=== PATIENT | female | born 1950 | race Two or more races ===

== ENCOUNTER 2019-09-26 08:39 | Inpatient (IN) | payer OTHER, BC ==
--- NOTE | 2019-09-26 08:55 | PDOC ---
History of Present Illness - General Chief Complaint: Weakness Stated Complaint: WEAKNESS Time Seen by Provider: 09/26/19 08:54 History Source: Patient Exam Limitations: No Limitations - History of Present Illness Initial Comments: 09/26/19 08:55 HPI: 68yo F PMH HLD presenting with subacute SOB and weakness for 4 days. Pt reports feeling short of breath for over a week, and has been "bed bound" since 09/23 due to fatigue. She reports having no appetite but drinking juice and water. Endorses chills, denies fever, nausea, vomiting, or body aches. Says she has been having difficulty thinking. History of anemia in her 20s treated with iron. Reports negative colonoscopy 7 years ago. Lung nodule in 2017. Denies any sy blood or dark stools to me, no abdominal pain, denies diarrhea, constipation. All: Dilaudid Past History - Past Medical History Allergies/Adverse Reactions: Allergies Allergy/AdvReac Type Severity Reaction Status Date / Time hydromorphone HCl Allergy ITCHINESS Verified 09/26/19 08:47 [From Dilaudid] Home Medications: Ambulatory Orders Atorvastatin Ca [Lipitor (Restricted To Cardiology)] 20 mg PO HS 03/17/13 Anemia: No Asthma: No Cancer: No Cardiac Disorders: No CVA: No COPD: No CHF: No DVT: No Dementia: No Diabetes: No GI Disorders: No Disorders: No HTN: No Hypercholesterolemia: Yes Liver Disease: No Seizures: No Thyroid Disease: No - Surgical History Abdominal Surgery: No Appendectomy: Yes Cardiac Surgery: No Cholecystectomy: No Lung Surgery: No Neurologic Surgery: No Orthopedic Surgery: No - Immunization History Immunization Up to Date: Yes - Psycho Social/Smoking Cessation Hx Smoking Status: No Smoking History: Never smoked Number of Cigarettes Smoked Daily: 0 Hx Alcohol Use: No Drug/Substance Use Hx: No Substance Use Type: None Hx Substance Use Treatment: No Review of Systems - Review of Systems Able to Perform ROS?: Yes Is the patient limited Persian proficient: Yes Constitutional: Yes: Chills, Malaise, Weakness. No: Fever HEENTM: No: Nose Congestion, Throat Pain Respiratory: Yes: Shortness of Breath. No: Cough, Wheezing, Hemoptysis Cardiac (ROS): No: Chest Pain, Edema, Irregular Heart Rate, Syncope, Chest Tightness ABD/GI: Yes: Poor Appetite. No: Constipated, Diarrhea, Nausea, Poor Fluid Intake, Vomiting : No: Burning, Dysuria Musculoskeletal: Yes: Muscle Weakness. No: Muscle Pain Integumentary: Yes: Pallor. No: Bruising, Rash Neurological: No: Headache, Numbness, Tingling, Weakness Psychiatric: Yes: Change in Appetite Hematologic/Lymphatic: Yes: Anemia (50 years ago). No: Blood Clots, Easy Bleeding All Other Systems: Reviewed and Negative *Physical Exam - Vital Signs Last Vital Signs Temp Pulse Resp BP Pulse Ox 98.1 F 102 H 18 129/50 L 100 09/26/19 08:47 09/26/19 08:47 09/26/19 08:47 09/26/19 08:47 09/26/19 08:47 - Physical Exam 09/26/19 10:18 Vitals reviewed, notable for mild tachycardia, afebrile GEN: Pale, tired, appears stated age, NAD. AAOx3. HEENT: NCAT, EOMI. Pale conjunctiva. No facial asymmetry. Moist mucous membranes. Normal voice. Trachea midline. CV: RRR, S1/S2, no murmurs / rubs / gallops appreciated. LUNG: CTAB, normal work of breathing. No wheezes, rales, rhonchi. No cough. Speaking full sentences. GI: Soft, NTND, no guarding, no rebound. No masses. Neg CVAT b/l. EXTREMITIES: 2+ distal pulses. No LE edema. No obvious deformities of all extremities. SKIN: Warm, dry, no rashes appreciated, non-jaundiced. PSYCH: Normal mood and affect. Cooperative and appropriate. NEURO: CN grossly intact. Moving all extremities well. Normal strength and sensation grossly. ED Treatment Course - LABORATORY CBC & Chemistry Diagram: 09/26/19 09:11 09/26/19 09:11 Medical Decision Making - Medical Decision Making 09/26/19 08:55 68yo F PMH HLD presenting with subacute SOB and acute weakness. Exam notable for pallor. Workup for anemia / weakness. Likely admission. - CBC, CMP, Cardiac Profile, T&S, Coags - EKG, CXR - Protonix - 1L IVF 09/26/19 10:36 - Hgb/Hct 4.8 / 14.1 - Total Bili 3.0 - 2U PRBCs ordered, patient consented - CXR without acute pathology - EKG Dispo: Med/Surg for new symptomatic anemia requiring transfusion Discharge - Discharge Information Problems reviewed: Yes Clinical Impression/Diagnosis: Anemia Qualifiers: Anemia type: unspecified type Qualified Code(s): D64.9 - Anemia, unspecified Condition: Guarded - Admission Yes - Follow up/Referral Referrals: Ewa Giang MD [Primary Care Provider] - - Patient Discharge Instructions - Post Discharge Activity
[2019-09-26] MEDS ORDERED: SODIUM CHLORIDE 0.9% 500 ML INFUS.BAG IV ONE (09:17)
[2019-09-26] MEDS ORDERED: PANTOPRAZOLE SODIUM 40 MG VIAL IVPUSH ONE (09:18)
[2019-09-26 09:26] LABS: BASO % 0.6 % (0-2.0); EOS % 0.4 % (0-4.5); HEMATOCRIT 14.1 % (32.4-45.2); LYMPH % 26.9 % (8-40); MCH 35.5 pg (25.7-33.7); MCHC 34.2 g/dl (32.0-36.0); MEAN CELL VOLUME 103.8 fl (80-96); MEAN PLT VOLUME 6.8 fl (7.5-11.1); MONO % 8.6 % (3.8-10.2); NEUT % 63.5 % (42.8-82.8); PLATELET COUNT 291 K/MM3 (134-434); RBC 1.36 M/mm3 (3.60-5.2); RDW 27.5 % (11.6-15.6); WHITE BLOOD COUNT 6.6 K/mm3 (4.0-10.0)
[2019-09-26 09:43] LABS: HEMOGLOBIN 4.8 GM/dL (10.7-15.3)
[2019-09-26 09:57] LABS: INR 1.53 (0.83-1.09); PROTHROMBIN TIME (PATIENT) 18.1 SEC (9.7-13.0)
[2019-09-26 10:00] LABS: ACTIVATED PTT 33.1 SECONDS (25.2-36.5); ALK PHOS 61 U/L (45-117); ANION GAP 9 MMOL/L (8-16); BLOOD UREA NITROGEN 18.7 mg/dL (7-18); CALCIUM 9.1 mg/dL (8.5-10.1); CHLORIDE 107 mmol/L (98-107); CO2 24 mmol/L (21-32); CREATININE 1.1 mg/dL (0.55-1.3); GLUCOSE,RANDOM 112 mg/dL (74-106); POTASSIUM 4.1 mmol/L (3.5-5.1); SGOT/AST 42 U/L (15-37); SGPT/ALT 24 U/L (13-61); SODIUM 140 mmol/L (136-145); TOT PROT 7.1 g/dl (6.4-8.2)
[2019-09-26] MEDS ORDERED: PANTOPRAZOLE SODIUM 40 MG/100 ML BAG IVPB ONE (10:03)
--- NOTE | 2019-09-26 10:11 | PDOC ---
Attending Attestation - Resident Resident Name: Yosef Fernandez - ED Attending Attestation I have performed the following: I have examined & evaluated the patient, The case was reviewed & discussed with the resident, I agree w/resident's findings & plan, Exceptions are as noted
[2019-09-26 10:36] LABS: ANISOCYTOSIS 1+; PLATELET ESTIMATE NORMAL
[2019-09-26 10:47] LABS: MACROCYTOSIS 1+; OVALOCYTE 1+; TARGET CELLS 1+; TEAR DROP CELLS 1+
--- NOTE | 2019-09-26 10:57 | PDOC ---
Documentation entered by Ashley Haider SCRIBE, acting as scribe for Jake Rebolledo MD. Jake Rebolledo MD: This documentation has been prepared by the Vitaly ortiz Adrianna, SCRIBE, under my direction and personally reviewed by me in its entirety. I confirm that the documentation accurately reflects all work, treatment, procedures, and medical decision making performed by me. Attending Attestation - Resident Resident Name: Yosef Fernnadez - ED Attending Attestation I have performed the following: I have examined & evaluated the patient, The case was reviewed & discussed with the resident, I agree w/resident's findings & plan, Exceptions are as noted - HPI HPI: The patient is a 68 year old female, with a significant PMH of HLD and anemia ( treated with iron in the past), who presents to the ED for evaluation of weakness and SOB for 4 days. Patient reports feeling short of breath, and has remained in bed as she feels weak and fatigued. She endorses a loss of appetite and dark stools recently, as well as noting she has had difficulty thinking. Allergies: Hydromorphone Surgical History: Appendectomy Social History: Denies EtOH, tobacco, or illicit drug use PCP: Dr. Giang - Physicial Exam PE: Vitals: Triage vital signs reviewed General Appearance: Pale-appearing. No acute distress. Cardiac: Regular rate and rhythm, no murmurs, no rubs, no gallops Lungs: Clear to auscultation bilateral, good air movement bilaterally Abdomen: Soft, nondistended, normal bowel sounds, nontender to palpation Extremities: Full range of motion to all extremities, no cyanosis, clubbing, or edema Skin: Warm and dry, no rashes or lesions, no rash, no petechiae Neuro: AOX3; Cranial Nerves 2-12 grossly intact, Strength intact to all extremities, Sensation intact to all extremities. Psych: Normal mood, normal affect - Medical Decision Making 68 year old female with history of HLD and anemia (treated with iron in the past ) presents to the ED with SOB and weakness. Plan: labs, ECG, chest x-ray, transfusion, admit
[2019-09-26 12:19] LABS: IRON SERUM 42 ug/dL (50-175); TOTAL IRON BINDING CAPACITY 240 ug/dL (250-450)
--- NOTE | 2019-09-26 13:48 | EKG ---
Test Reason : Blood Pressure : / mmHG Vent. Rate : 094 BPM Atrial Rate : 094 BPM P-R Int : 144 ms QRS Dur : 082 ms QT Int : 364 ms P-R-T Axes : 060 054 023 degrees QTc Int : 455 ms NORMAL SINUS RHYTHM NONSPECIFIC ST ABNORMALITY ABNORMAL ECG WHEN COMPARED WITH ECG OF 15-APR-2012 18:14, NO SIGNIFICANT CHANGE WAS FOUND Confirmed by THOMAS RAMIREZ MD ([id number]) on 09/26/2019 1:48:19 PM Referred By: Confirmed By:THOMAS RAMIREZ MD
--- NOTE | 2019-09-26 13:57 | HP ---
CHIEF COMPLAINT: SOB, generalized weakness PCP: DR. Giang HISTORY OF PRESENT ILLNESS: Pt. is a 68 y.o. F w/ PMHx. of HLD, and remote Hx. of anemia (treated with oral iron in her 20s). Pt. states that over the last 4 days she has been experiencing worsening shortness of breath with increasing weakness to the point where she was bed bound over the last 4 days. Pt. states that over the last 4 months she has been having intermittent episodes of shortness of breath. Pt. endorses "difficulty thinking x 1 week," loss of appetite, and chills. Pt. endorses increased leg swelling over the last year. Pt. states that she saw her PCP 5 months ago and that her blood work was normal. Called Dr. Giang's office and reviewd her labs Pt. had RBC: 4.42, H/H : 12.8/38.3, MCV: 88.6, and RDW: 16.1. Pt. states she had a colonoscopy 7 years ago and that it was negative (on chart review Pt. had internal hemorrhoids). Pt. denies any chest pain, abdominal pain, fever, recent illness, recent antibiotic use, or changes in urinary or bowel habits. Pt. denies any overt blood loss. Family Hx.: Mother had DM, Colon CA, and Alzheimer; Sister had 2 brain aneurysms. Pt. denies any history of coagulopathy, Grandfather and mother had strokes. ER course was notable for: (1)T&S, Protonix (2)1L IVF, EKG (3)CBC/CMP Recent Travel: No PAST MEDICAL HISTORY: As above PAST SURGICAL HISTORY: Appendectomy, Social History: Smoking: Denies Alcohol: 3 glasses of wine per week, decreased from 2 glasses a day two years ago Drugs: Denies Work: Pt. is retired insurance clerk in the [employer], now practices fitness with yoga, meditation, and other exercises. Allergies hydromorphone HCl [From Dilaudid] Allergy (Verified 09/26/19 08:47) ITCHINESS HOME MEDICATIONS: Home Medications Medication Instructions Recorded Atorvastatin Ca [Lipitor 20 mg PO HS 03/17/13 (Restricted To Cardiology)] REVIEW OF SYSTEMS As above PHYSICAL EXAMINATION Vital Signs - 24 hr 09/26/19 09/26/19 09/26/19 08:47 12:00 12:52 Temperature 98.1 F 98.2 F Pulse Rate 102 H 92 H Pulse Rate [ 96 H Right] Respiratory 18 16 16 Rate Blood Pressure 129/50 L 101/59 L Blood Pressure 99/50 L [Right Arm] O2 Sat by Pulse 100 100 99 Oximetry (%) GENERAL: Awake, alert, and fully oriented, in acute respiratory distress w/ conversational dyspnea. HEAD: Normal with no signs of trauma. EYES: Extraocular movements intact, sclera anicteric, pale conjunctiva. EARS, NOSE, THROAT: Ears normal, nares patent, oropharynx clear without exudates. Moist mucous membranes. NECK: Normal range of motion, supple without lymphadenopathy, JVD, or masses. LUNGS: B/l bibasilar crackles, no accessory muscle use HEART: Tachycardic, regular rate and rhythm, normal S1 and S2 with systolic murmur ABDOMEN: Soft, nontender, not distended, normoactive bowel sounds, no guarding, no rebound, no masses. MUSCULOSKELETAL: No bony deformities or tenderness. No CVA tenderness. UPPER EXTREMITIES: Warm, well-perfused. No cyanosis. No clubbing. No peripheral edema. LOWER EXTREMITIES: 2+ dorsal pedal pulses, warm, well-perfused. No calf tenderness. Trace non-pitting edema. NEUROLOGICAL: Cranial nerves II-XII intact. Normal speech. Gait not assesed as Pt. had difficulty pulling herself up. PSYCHIATRIC: Cooperative. Good eye contact. Appropriate mood and affect. SKIN: Warm, dry, normal turgor, pallor Laboratory Results - last 24 hr 09/26/19 09/26/19 09/26/19 09:11 09:11 09:11 WBC 6.6 RBC 1.36 L Hgb 4.8 L* Hct 14.1 L MCV 103.8 H MCH 35.5 H D MCHC 34.2 RDW 27.5 H Plt Count 291 D MPV 6.8 L D Absolute Neuts (auto) 4.2 Neutrophils % 63.5 Neutrophils % (Manual) 60.2 Band Neutrophils % 9.2 Lymphocytes % 26.9 D Lymphocytes % (Manual) 14.3 Monocytes % 8.6 Monocytes % (Manual) 8 Eosinophils % 0.4 Eosinophils % (Manual) 0.0 Basophils % 0.6 Basophils % (Manual) 1.0 Myelocytes % (Man) 0 Promyelocytes % (Man) 0 Blast Cells % (Manual) 0 Nucleated RBC % 0 Metamyelocytes 0 Hypochromia 1+ Platelet Estimate Normal Polychromasia 2+ Poikilocytosis 2+ Basophilic Stippling 1+ Anisocytosis 1+ Microcytosis 1+ Macrocytosis 1+ Spherocytes 1+ Target Cells 1+ Tear Drop Cells 1+ Ovalocytes 1+ Stomatocytes 1+ PT with INR 18.10 H INR 1.53 H PTT (Actin FS) 33.1 Sodium 140 Potassium 4.1 Chloride 107 Carbon Dioxide 24 Anion Gap 9 BUN 18.7 H Creatinine 1.1 Est GFR (CKD-EPI)AfAm 58.91 Est GFR (CKD-EPI)NonAf 50.83 Random Glucose 112 H Calcium 9.1 Iron 42 L TIBC 240 L Iron Saturation 17 L Unsaturated IBC 198 L Ferritin 467.3 H Total Bilirubin 3.0 H AST 42 H ALT 24 Alkaline Phosphatase 61 Creatine Kinase 43 Troponin I < 0.02 Total Protein 7.1 Albumin 4.0 Vitamin B12 463 Serum Folate 17 Stool Occult Blood Anti-A Titer Blood Type Antibody Screen Crossmatch 09/26/19 09/26/19 09:11 10:00 WBC RBC Hgb Hct MCV MCH MCHC RDW Plt Count MPV Absolute Neuts (auto) Neutrophils % Neutrophils % (Manual) Band Neutrophils % Lymphocytes % Lymphocytes % (Manual) Monocytes % Monocytes % (Manual) Eosinophils % Eosinophils % (Manual) Basophils % Basophils % (Manual) Myelocytes % (Man) Promyelocytes % (Man) Blast Cells % (Manual) Nucleated RBC % Metamyelocytes Hypochromia Platelet Estimate Polychromasia Poikilocytosis Basophilic Stippling Anisocytosis Microcytosis Macrocytosis Spherocytes Target Cells Tear Drop Cells Ovalocytes Stomatocytes PT with INR INR PTT (Actin FS) Sodium Potassium Chloride Carbon Dioxide Anion Gap BUN Creatinine Est GFR (CKD-EPI)AfAm Est GFR (CKD-EPI)NonAf Random Glucose Calcium Iron TIBC Iron Saturation Unsaturated IBC Ferritin Total Bilirubin AST ALT Alkaline Phosphatase Creatine Kinase Troponin I Total Protein Albumin Vitamin B12 Serum Folate Stool Occult Blood Negative Anti-A Titer Cancelled Blood Type A POSITIVE Antibody Screen Positive H Crossmatch See Detail ASSESSMENT/PLAN: Pt. is a 68 y.o. F w/ PMHx. of HLD, and remote Hx. of anemia (treated with oral iron in her 20s). Pt. states that over the last 4 days she has been experiencing worsening shortness of breath with increasing weakness to the point where she was bed bound over the last 4 days. #Macrocytic Anemia H/H: 4.8/14.1; MCV:103.8 likely hemolytic as Pt. has elevated TBili: 3.0, elevated LDH: 812, negative FOBT, elevated reticulocyte count: 18.5 B12 and Folate wnl f/u Parvovirus f/u Cold agglutinins f/u WAHA will transfuse 2 units and trend CBC Q8H (Of note Pt. has been having difficulty finding match for blood) T&S ICU consult appreciated Consult to Hematology/Oncology appreciated: Pt. will likely require steroids EKG: NSR, QTc: 455, TWI in V1 Trop - INR: 1.53 r/o infectious etiology #HLD hold lipitor #FEN Hold IVF monitor electrolytes NPO (give, lunch earlier today) #DVT Ppx. SCDs, no AC Visit type - Emergency Visit Emergency Visit: Yes ED Registration Date: 09/26/19 Care time: The patient presented to the Emergency Department on the above date and was hospitalized for further evaluation of their emergent condition. - New Patient This patient is new to me today: Yes Date on this admission: 09/26/19 - Critical Care Critical Care patient: Yes Total Critical Care Time (in minutes): 45 Critical Care Statement: The care of this patient involved high complexity decision making to prevent further life threatening deterioration of the patient 's condition and/or to evaluate & treat vital organ system(s) failure or risk of failure. ATTENDING PHYSICIAN STATEMENT I saw and evaluated the patient. I reviewed the resident's note and discussed the case with the resident. I agree with the resident's findings and plan as documented. SUBJECTIVE: OBJECTIVE: ASSESSMENT AND PLAN:
[2019-09-26] MEDS ORDERED: FUROSEMIDE 40 MG/4 ML INJECTABLE VIAL IVPUSH ONE (13:58)
--- NOTE | 2019-09-26 14:10 | PN ---
Teaching Attending Note Name of Resident: Morteza Christina ATTENDING PHYSICIAN STATEMENT I saw and evaluated the patient. I reviewed the resident's note and discussed the case with the resident. I agree with the resident's findings and plan as documented. SUBJECTIVE: Shortness of breath and generalized weakness OBJECTIVE: Vital Signs Temperature 98.2 F 09/26/19 12:52 Pulse Rate 92 H 09/26/19 12:52 Respiratory Rate 16 09/26/19 12:52 Blood Pressure 101/59 L 09/26/19 12:52 O2 Sat by Pulse Oximetry (%) 99 09/26/19 12:52 General: Pallor, looks tired not in distress HEENT; mucous membranes moist, anemia, no jaundice, PERRLA, no nystagmus Neck: No JVD, supple, no bruit, thyroid palpably normal, normal carotid pulsations. Chest: Nontender, clear to auscultation bilaterally/bilateral wheezing/ bilateral basal rales. CVS: S1-S2 regular soft murmur murmur/no gallop/rub Abdomen: Nondistended, soft, bowel sounds present. Extremities: Trace edema., No cough tenderness, pulses present DIE REPAIRER FORGING: AO X3 , no gross motor sensory deficit CBC,CMP WBC 6.6 K/mm3 (4.0-10.0) 09/26/19 09:11 RBC 1.36 M/mm3 (3.60-5.2) L 09/26/19 09:11 Hgb 4.8 GM/dL (10.7-15.3) L* 09/26/19 09:11 Hct 14.1 % (32.4-45.2) L 09/26/19 09:11 MCV 103.8 fl (80-96) H 09/26/19 09:11 MCH 35.5 pg (25.7-33.7) H D 09/26/19 09:11 MCHC 34.2 g/dl (32.0-36.0) 09/26/19 09:11 RDW 27.5 % (11.6-15.6) H 09/26/19 09:11 Plt Count 291 K/MM3 (134-434) D 09/26/19 09:11 MPV 6.8 fl (7.5-11.1) L D 09/26/19 09:11 Absolute Neuts (auto) 4.2 K/mm3 (1.5-8.0) 09/26/19 09:11 Neutrophils % 63.5 % (42.8-82.8) 09/26/19 09:11 Neutrophils % (Manual) 60.2 % (42.8-82.8) 09/26/19 09:11 Band Neutrophils % 9.2 % 09/26/19 09:11 Lymphocytes % 26.9 % (8-40) D 09/26/19 09:11 Lymphocytes % (Manual) 14.3 % (8-40) 09/26/19 09:11 Monocytes % 8.6 % (3.8-10.2) 09/26/19 09:11 Monocytes % (Manual) 8 % (3.8-10.2) 09/26/19 09:11 Eosinophils % 0.4 % (0-4.5) 09/26/19 09:11 Eosinophils % (Manual) 0.0 % (0-4.5) 09/26/19 09:11 Basophils % 0.6 % (0-2.0) 09/26/19 09:11 Basophils % (Manual) 1.0 % (0-2.0) 09/26/19 09:11 Myelocytes % (Man) 0 % (0-2) 09/26/19 09:11 Promyelocytes % (Man) 0 % (0-2) 09/26/19 09:11 Blast Cells % (Manual) 0 % (0-0) 09/26/19 09:11 Nucleated RBC % 0 % (0-0) 09/26/19 09:11 Metamyelocytes 0 % (0-2) 09/26/19 09:11 Hypochromia 1+ 09/26/19 09:11 Platelet Estimate Normal 09/26/19 09:11 Polychromasia 2+ 09/26/19 09:11 Poikilocytosis 2+ 09/26/19 09:11 Basophilic Stippling 1+ 09/26/19 09:11 Anisocytosis 1+ 09/26/19 09:11 Microcytosis 1+ 09/26/19 09:11 Macrocytosis 1+ 09/26/19 09:11 Spherocytes 1+ 09/26/19 09:11 Target Cells 1+ 09/26/19 09:11 Tear Drop Cells 1+ 09/26/19 09:11 Ovalocytes 1+ 09/26/19 09:11 Stomatocytes 1+ 09/26/19 09:11 Sodium 140 mmol/L (136-145) 09/26/19 09:11 Potassium 4.1 mmol/L (3.5-5.1) 09/26/19 09:11 Chloride 107 mmol/L (98-107) 09/26/19 09:11 Carbon Dioxide 24 mmol/L (21-32) 09/26/19 09:11 Anion Gap 9 MMOL/L (8-16) 09/26/19 09:11 BUN 18.7 mg/dL (7-18) H 09/26/19 09:11 Creatinine 1.1 mg/dL (0.55-1.3) 09/26/19 09:11 Est GFR (CKD-EPI)AfAm 58.91 09/26/19 09:11 Est GFR (CKD-EPI)NonAf 50.83 09/26/19 09:11 Random Glucose 112 mg/dL (74-106) H 09/26/19 09:11 Calcium 9.1 mg/dL (8.5-10.1) 09/26/19 09:11 Iron 42 ug/dL (50-175) L 09/26/19 09:11 TIBC 240 ug/dL (250-450) L 09/26/19 09:11 Iron Saturation 17 % (17.5-39) L 09/26/19 09:11 Unsaturated IBC 198 ug/dL (200-275) L 09/26/19 09:11 Ferritin 467.3 ng/ml (8-388) H 09/26/19 09:11 Total Bilirubin 3.0 mg/dL (0.2-1) H 09/26/19 09:11 AST 42 U/L (15-37) H 09/26/19 09:11 ALT 24 U/L (13-61) 09/26/19 09:11 Alkaline Phosphatase 61 U/L (45-117) 09/26/19 09:11 Creatine Kinase 43 U/L (26-192) 09/26/19 09:11 Troponin I < 0.02 ng/ml (0.00-0.05) 09/26/19 09:11 Total Protein 7.1 g/dl (6.4-8.2) 09/26/19 09:11 Albumin 4.0 g/dl (3.4-5.0) 09/26/19 09:11 Vitamin B12 463 pg/ml (193-986) 09/26/19 09:11 Serum Folate 17 ng/mL (3.1-17.5) 09/26/19 09:[address] EK NSR no acute ST-T changes. ASSESSMENT AND PLAN: 68 years old female no significant past medical history except hypercholesterolemia, weight gain for past 2 to 3 years, goes for regular follow-up with PMD every 6 months in the past she was told that she has anemia, never had melena or bright red blood per rectum, few weeks ago had URTI , to the present with complaint of feeling tired for past few weeks and shortness of breath since Sunday, denies any chest pain, palpitation, fever chills On arrival to ED patient work-up shows hemoglobin 4.8 with MCV 103 and elevated total bilirubin 3.0, normal vitamin B12 folate and ferritin iron saturation 17% TIBC 240 AST 42 no coagulopathy, platelet count is normal WBC count is 6.6 TIBC 1.36 Impression: Severe symptomatic anemia with mild macrocytosis with normal folate and vitamin B12 level and iron panel, no acute blood loss no clinical sign of occult bleeding last colonoscopy was 7 years ago and she was told that she has hemorrhoids, a stable pulmonary nodule Plan 1. Patient need further evaluation for severe anemia with macrocytosis less likely B12 or folate deficiency follow-up TSH, parvovirus antibody, hematology consult ,cold and hot agglutinin, direct and indirect bella test, peripheral smear, LDH,haptoglobin, BNP, direct and indirect fraction bilirubin, 2 unit packed RBC in between 20 mg Lasix IV observe for volume overload. Please call PMD to get baseline CBC result. Stool occult blood, 2. Hypercholesterolemia: Continue statin Discussed with the resident
[2019-09-26 14:18] LABS: LDH 812 U/L (84-246)
[2019-09-26] MEDS ORDERED: SODIUM CHLORIDE 1,000 ML IV SCH (16:45)
--- NOTE | 2019-09-26 18:34 | PN ---
Progress Note (short form) - Note Progress Note: Consult dictated 68 year old female with progressive SOB and weakness. Presents with tachypnea and profound anemia. No recent illnesses LAB Hb4.8, Hct 14.1.Retic count -18%, total bilirubin 3.0, LDH-812,SGPT-42. PMH-- hypercholesterolemia Soc HX- , 3 children, [place] ,non smoker, drinks 4-6 oz of wine nightly with meals, no illicit drugs,no industrial exposures or intoxicants Family Hx-- mother and father of strokes; sister with cerebral aneurysms, ; no history of cancer or hematologic disorder in family Meds: atorvastatin, calcium, vitamin D ROS, tiredness , weakness, SOB, dyspneic, tachypneic P.E. Last Vital Signs Temp Pulse Resp BP Pulse Ox 99.2 F 94 H 18 104/54 L 99 09/26/19 15:26 09/26/19 15:26 09/26/19 15:26 09/26/19 15:26 09/26/19 12:52 HEENT: XOCHILT, EOM Intact Oropharynx: No thrush, No mucositis Neck: Supple Nodes: Without adenopathy Breasts: Without masses Cor: RSR, No murmurs, No gallops Lungs: Clear to P&A Abd: Soft, Normal bowel sounds, No organomegaly Ext:No significant edema Skin: No rashes, Integument intact CBC, BMP 09/26/19 09:11 09/26/19 09:11 INR, PTT INR 1.53 (0.83-1.09) H 09/26/19 09:11 Abnormal Lab Results 09/26/19 09/26/19 09/26/19 09:11 09:11 09:11 RBC 1.36 L Hgb 4.8 L* Hct 14.1 L MCV 103.8 H MCH 35.5 H D RDW 27.5 H MPV 6.8 L D Retic Count 18.50 H* PT with INR 18.10 H INR 1.53 H BUN 18.7 H Random Glucose 112 H Iron 42 L TIBC 240 L Iron Saturation 17 L Unsaturated IBC 198 L Ferritin 467.3 H Total Bilirubin 3.0 H AST 42 H LD Total 812 H Antibody Screen Prewarmed Antibody Srcn Direct Antiglob Test Crossmatch 09/26/19 09:11 RBC Hgb Hct MCV MCH RDW MPV Retic Count PT with INR INR BUN Random Glucose Iron TIBC Iron Saturation Unsaturated IBC Ferritin Total Bilirubin AST LD Total Antibody Screen Positive H Prewarmed Antibody Srcn Positive H Direct Antiglob Test Positive H Crossmatch See Detail Peripheral smear: RBC- macrocytes, rouleaux, normoblasts seen WBC-Left shift ; toxic granulation, many bands seen Platelets- normal 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 Initial screen in blood bank suggests Justyn positivity, IgG. Blood sent to [facility] for cross matching Plan Direct Justyn, ALEX ordered Begin steroids prednisone--1 1/2 /kg i.e. 90mg or equivalent IV tonight Give GI prophylaxis WILLIAN, WYATT,AntiDS-DNA, Rheumtoid factor, direct/indirect bilirubin Will need total body CT scans when stable, possible BM Consider AIHA, Rheumatologic disorders, lymphoma in differential In view of toxic graulation, left shift after transfusion blood cultures, urie culture. May need to give least incompatible blood by biologic x-match
[2019-09-26] MEDS: methylPREDNISolone NA SUCC 125 MG/2 ML VIAL IVPUSH SCH (20:41)
--- NOTE | 2019-09-26 20:54 | CONSULT ---
Consultation: REQUESTING PROVIDER: Dr. Lemons CONSULT REQUEST: We have been asked to medically evaluate this patient for hemodynamic instability. HISTORY OF PRESENT ILLNESS: 68 y.o. F PMH HLD, iron def anemia, osteoporosis, presented tonight with dyspnea & malaise for the past few days. She has been fatigued which has led to difficulty carrying out her usual daily activities. The patient endorses being mainly bed-bound for the past 4 days 2/[address] Giang outpatient, last reported H&H was 12.8/38.3 about 5 months ago. Today patient has hgb 4.8. Blood type & screen sent to blood bank, initial screening suggesting likely marissa + IgG-- further sent to [facility] for cross matching. FOBT neg, patient denies any active bleeding/ hematemesis/ hematochezia/ menorrhagia. Denies dizziness/ lightheadedness/ chest pain/ headaches/ emesis/ diarrhea/ urinary changes/ fevers/ chills/ nausea. REVIEW OF SYSTEMS: CONSTITUTIONAL: generalized weakness, malaise, loss of appetite Absent: fever, chills, diaphoresis, weight change HEENT: Absent: rhinorrhea, nasal congestion, throat pain, throat swelling, difficulty swallowing, mouth swelling, ear pain, eye pain, visual changes CARDIOVASCULAR: Absent: chest pain, syncope, palpitations, irregular heart rate, lightheadedness , peripheral edema RESPIRATORY: shortness of breath, dyspnea with exertion Absent: cough, orthopnea, wheezing, stridor, hemoptysis GASTROINTESTINAL: Absent: abdominal pain, abdominal distension, nausea, vomiting, diarrhea, constipation, melena, hematochezia GENITOURINARY: Absent: dysuria, frequency, urgency, hesitancy, hematuria, flank pain, genital pain MUSCULOSKELETAL: Absent: myalgia, arthralgia, joint swelling, back pain, neck pain SKIN: Absent: rash, itching, pallor HEMATOLOGIC/IMMUNOLOGIC: Absent: easy bleeding, easy bruising, lymphadenopathy, frequent infections ENDOCRINE: Absent: unexplained weight gain, unexplained weight loss, heat intolerance, cold intolerance NEUROLOGIC: Absent: headache, focal weakness or paresthesias, dizziness, unsteady gait, seizure, mental status changes, bladder or bowel incontinence PSYCHIATRIC: Absent: anxiety, depression, suicidal or homicidal ideation, hallucinations. PHYSICAL EXAMINATION Vital Signs - 24 hr 09/26/19 09/26/1920 08:47 12:00 12:52 Temperature 98.1 F 98.2 F Pulse Rate 102 H 92 H Pulse Rate [ 96 H Right] Respiratory 18 16 16 Rate Blood Pressure 129/50 L 101/59 L Blood Pressure 99/50 L [Right Arm] O2 Sat by Pulse 100 100 99 Oximetry (%) 09/26/19 15:26 Temperature 99.2 F Pulse Rate 94 H Pulse Rate [ Right] Respiratory 18 Rate Blood Pressure 104/54 L Blood Pressure [Right Arm] O2 Sat by Pulse Oximetry (%) GENERAL: Awake, alert, and fully oriented, in no acute distress. HEENT: facial, conjunctival, mucous mem pallor noted. LUNGS: RUL fine crackles HEART: Regular rate and rhythm, normal S1 and S2 without murmur, rub or gallop. ABDOMEN: Soft NTND EXTREMITIES: 2+ pulses, warm, well-perfused. No edema. NEUROLOGICAL: Cranial nerves II-XII intact. Normal speech. Normal gait. PSYCHIATRIC: Cooperative. Good eye contact. Appropriate mood and affect. SKIN: Warm, dry. Laboratory Results - last 24 hr Laboratory Last Values WBC 6.6 K/mm3 (4.0-10.0) 09/26/19 09:11 RBC 1.36 M/mm3 (3.60-5.2) L 09/26/19 09:11 Hgb 4.8 GM/dL (10.7-15.3) L* 09/26/19 09:11 Hct 14.1 % (32.4-45.2) L 09/26/19 09:11 MCV 103.8 fl (80-96) H 09/26/19 09:11 MCH 35.5 pg (25.7-33.7) H D 09/26/19 09:11 MCHC 34.2 g/dl (32.0-36.0) 09/26/19 09:11 RDW 27.5 % (11.6-15.6) H 09/26/19 09:11 Plt Count 291 K/MM3 (134-434) D 09/26/19 09:11 MPV 6.8 fl (7.5-11.1) L D 09/26/19 09:11 Absolute Neuts (auto) 4.2 K/mm3 (1.5-8.0) 09/26/19 09:11 Neutrophils % 63.5 % (42.8-82.8) 09/26/19 09:11 Neutrophils % (Manual) 60.2 % (42.8-82.8) 09/26/19 09:11 Band Neutrophils % 9.2 % 09/26/19 09:11 Lymphocytes % 26.9 % (8-40) D 09/26/19 09:11 Lymphocytes % (Manual) 14.3 % (8-40) 09/26/19 09:11 Monocytes % 8.6 % (3.8-10.2) 09/26/19 09:11 Monocytes % (Manual) 8 % (3.8-10.2) 09/26/19 09:11 Eosinophils % 0.4 % (0-4.5) 09/26/19 09:11 Eosinophils % (Manual) 0.0 % (0-4.5) 09/26/19 09:11 Basophils % 0.6 % (0-2.0) 09/26/19 09:11 Basophils % (Manual) 1.0 % (0-2.0) 09/26/19 09:11 Myelocytes % (Man) 0 % (0-2) 09/26/19 09:11 Promyelocytes % (Man) 0 % (0-2) 09/26/19 09:11 Blast Cells % (Manual) 0 % (0-0) 09/26/19 09:11 Nucleated RBC % 0 % (0-0) 09/26/19 09:11 Metamyelocytes 0 % (0-2) 09/26/19 09:11 Hypochromia 1+ 09/26/19 09:11 Platelet Estimate Normal 09/26/19 09:11 Polychromasia 2+ 09/26/19 09:11 Poikilocytosis 2+ 09/26/19 09:11 Basophilic Stippling 1+ 09/26/19 09:11 Anisocytosis 1+ 09/26/19 09:11 Microcytosis 1+ 09/26/19 09:11 Macrocytosis 1+ 09/26/19 09:11 Spherocytes 1+ 09/26/19 09:11 Target Cells 1+ 09/26/19 09:11 Tear Drop Cells 1+ 09/26/19 09:11 Ovalocytes 1+ 09/26/19 09:11 Stomatocytes 1+ 09/26/19 09:11 Retic Count 18.50 % (0.5-1.5) H* 09/26/19 09:11 PT with INR 18.10 SEC (9.7-13.0) H 09/26/19 09:11 INR 1.53 (0.83-1.09) H 09/26/19 09:11 PTT (Actin FS) 33.1 SECONDS (25.2-36.5) 09/26/19 09:11 Sodium 140 mmol/L (136-145) 09/26/19 09:11 Potassium 4.1 mmol/L (3.5-5.1) 09/26/19 09:11 Chloride 107 mmol/L (98-107) 09/26/19 09:11 Carbon Dioxide 24 mmol/L (21-32) 09/26/19 09:11 Anion Gap 9 MMOL/L (8-16) 09/26/19 09:11 BUN 18.7 mg/dL (7-18) H 09/26/19 09:11 Creatinine 1.1 mg/dL (0.55-1.3) 09/26/19 09:11 Est GFR (CKD-EPI)AfAm 58.91 09/26/19 09:11 Est GFR (CKD-EPI)NonAf 50.83 09/26/19 09:11 Random Glucose 112 mg/dL (74-106) H 09/26/19 09:11 Calcium 9.1 mg/dL (8.5-10.1) 09/26/19 09:11 Iron 42 ug/dL (50-175) L 09/26/19 09:11 TIBC 240 ug/dL (250-450) L 09/26/19 09:11 Iron Saturation 17 % (17.5-39) L 09/26/19 09:11 Unsaturated IBC 198 ug/dL (200-275) L 09/26/19 09:11 Ferritin 467.3 ng/ml (8-388) H 09/26/19 09:11 Total Bilirubin 3.0 mg/dL (0.2-1) H 09/26/19 09:11 Direct Bilirubin 0.5 mg/dL (0.0-0.2) H 09/26/19 19:15 AST 42 U/L (15-37) H 09/26/19 09:11 ALT 24 U/L (13-61) 09/26/19 09:11 Alkaline Phosphatase 61 U/L (45-117) 09/26/19 09:11 LD Total 812 U/L (84-246) H 09/26/19 09:11 Creatine Kinase 43 U/L (26-192) 09/26/19 09:11 Troponin I < 0.02 ng/ml (0.00-0.05) 09/26/19 09:11 Total Protein 7.1 g/dl (6.4-8.2) 09/26/19 09:11 Albumin 4.0 g/dl (3.4-5.0) 09/26/19 09:11 Vitamin B12 463 pg/ml (193-986) 09/26/19 09:11 Serum Folate 17 ng/mL (3.1-17.5) 09/26/19 09:11 Urine Color Yellow 09/27/19 00:05 Urine Appearance Clear 09/27/19 00:05 Urine pH 6.5 (5.0-8.0) D 09/27/19 00:05 Ur Specific [place] 1.014 (1.010-1.035) 09/27/19 00:05 Urine Protein Negative (NEGATIVE) 09/27/19 00:05 Urine Glucose (UA) Negative (NEGATIVE) 09/27/19 00:05 Urine Ketones Negative (NEGATIVE) 09/27/19 00:05 Urine Blood Negative (NEGATIVE) 09/27/19 00:05 Urine Nitrite Negative (NEGATIVE) 09/27/19 00:05 Urine Bilirubin Negative (NEGATIVE) 09/27/19 00:05 Urine Urobilinogen 0.2 mg/dL (0.2-1.0) 09/27/19 00:05 Ur Leukocyte Esterase Trace (NEGATIVE) 09/27/19 00:05 Urine WBC (Auto) 2 /hpf (0-5) 09/27/19 00:05 Urine RBC (Auto) 2 /hpf (0-4) 09/27/19 00:05 Urine Casts (Auto) 1 /lpf (0-8) 09/27/19 00:05 U Epithel Cells (Auto) 0.6 /HPF (0-5/HPF) 01/25/20 00:05 Urine Bacteria (Auto) 2.2 /hpf (NEGATIVE) 09/27/19 00:05 Stool Occult Blood Negative (NEGATIVE) 09/26/19 10:00 Anti-A Titer Cancelled 09/26/19 09:11 Blood Type A POSITIVE 09/26/19 21:20 Antibody Screen Positive H 09/26/19 09:11 Prewarmed Antibody Srcn Positive H 09/26/19 09:11 Antibody Identification Waiha 09/26/19 09:11 Antigen Identification No Result Required. 09/26/19 09:11 Direct Antiglob Test Positive (NEGATIVE) H 09/27/19 02:00 Crossmatch See Detail 09/26/19 09:11 Current Medications Atorvastatin Calcium (Lipitor -) 20 mg PO HS [facility] Last Admin: 09/26/19 21:34 Dose: 20 mg Chlorhexidine Gluconate (Hibiclens For Decolonization -) 1 applic TP HS [facility] Last Admin: 09/26/19 21:35 Dose: 1 applic Methylprednisolone Sodium Succinate (Solu-Medrol -) 90 mg IVPUSH DAILY [facility] Last Admin: 09/26/19 20:41 Dose: 90 mg Mupirocin (Bactroban Ointment (For Decolonization) -) 1 applic NS BID [facility] Stop: 10/01/19 21:59 Last Admin: 09/26/19 21:34 Dose: 1 applic Pantoprazole Sodium (Protonix Iv) 40 mg IVPUSH DAILY [facility] ASSESSMENT/PLAN: 68 y.o. F PMH HLD, iron def anemia, osteoporosis presenting for generalized weakness found to have hgb 4.8. #STOCK FITTER -AOx3 -no acute issues #CV -EKG: NSR, qtc 455, no ST changes -trop neg x1 -denies chest pain -monitoring on tele, maintain MAP >65, strict BP monitoring #Pulm -+ SOB -Continue oxygen supplementation via nasal cannula; on 2L, continue to monitor -Maintain O2 sat >90% -Serial pulm exams -Holding IVF for now #Heme/Onc -Type & screen shows direct Marissa ab + -Hgb 4.8, hct 14.1, retic count elevated 18.5 -blood sent for crossmatch @ [facility] [place]-- blood center was unable to crossmatch, 2+ warm auto-ab rxn as per [facility] blood [facility]. Will give least incompatible blood tonight to address severely low hgb. Transfuse slowly 100cc- - f/u type & cross/ marissa, then 100cc if no reaction. -closely monitoring hemodynamics -Steroids initiated: 1.5mg/kg (90mg solumedrol IV)-- continue x3 days until Sunday, then decrease dose to 60mg -F/u heme studies: haptoglobin, LDH, bilirubin direct/ total to assess for hemolytic anemia -F/u WILLIAN, anti-dsDNAm Rh factor -Dr. Lemons following-- differentials include AIHA, rheumatologic d/o, lymphoma, infectious source. Once stable total body CT scans, poss BM biopsy. #Renal -BUN/Cr 18.7/1.1 -f/u AM bmp #GI -denies active bleeding -continue to monitor #ID -F/u UA, urine cx, blood cx's post- transfusion to r/o infectious source -currently afebrile, monitor for fevers #PPX -Protonix 40mg IV daily -SCDs in setting of low hgb #FENLTD -Holding ivf -trend lytes replete prn -NPO -Peripheral lines Dispo: We will continue to follow the patient. Thank you for this consultative opportunity. Visit type - Emergency Visit Emergency Visit: Yes ED Registration Date: 09/26/19 Care time: The patient presented to the Emergency Department on the above date and was hospitalized for further evaluation of their emergent condition. - New Patient This patient is new to me today: Yes Date on this admission: 09/27/19 - Critical Care Critical Care patient: Yes Total Critical Care Time (in minutes): 45 Critical Care Statement: The care of this patient involved high complexity decision making to prevent further life threatening deterioration of the patient 's condition and/or to evaluate & treat vital organ system(s) failure or risk of failure. ATTENDING PHYSICIAN STATEMENT I saw and evaluated the patient. I reviewed the resident's note and discussed the case with the resident. I agree with the resident's findings and plan as documented. SUBJECTIVE: OBJECTIVE: ASSESSMENT AND PLAN:
[2019-09-26] MEDS: MUPIROCIN 2% TOPICAL OINTMENT FOR DECOLONIZATION NS SCH (21:34)
[2019-09-26] MEDS: ATORVASTATIN CA 20 MG TABLET (FP) PO SCH (21:34)
[2019-09-26] MEDS: CHLORHEXIDINE GLUCONATE 4% CLEANSER FOR DECOLONIZATION TP SCH (21:35)
[2019-09-27 02:12] LABS: EPI CELLS 0.6 /HPF (0-5/HPF); HYALINE CASTS 1 /lpf (0-8); PH,URINE 6.5 (5.0-8.0); URINE APPEARANCE CLEAR; URINE BACTERIA 2.2 /hpf (NEGATIVE); URINE BILIRUBIN NEGATIVE (NEGATIVE); URINE COLOR YELLOW; URINE GLUCOSE (UA) NEGATIVE (NEGATIVE); URINE KETONE NEGATIVE (NEGATIVE); URINE LEUK ESTERASE TRACE (NEGATIVE); URINE NITRITE NEGATIVE (NEGATIVE); URINE PROTEIN NEGATIVE (NEGATIVE); URINE RBC 2 /hpf (0-4); URINE UROBILINOGEN 0.2 mg/dL (0.2-1.0); URINE WBC 2 /hpf (0-5)
[2019-09-27] MEDS ORDERED: FUROSEMIDE 40 MG/4 ML INJECTABLE VIAL IVPUSH ONE (04:22)
[2019-09-27] MEDS ORDERED: FUROSEMIDE 40 MG/4 ML INJECTABLE VIAL ONE (04:35)
--- NOTE | 2019-09-27 07:18 | CONS ---
DATE OF CONSULTATION: 09/26/2019 HISTORY: I was just notified to see this patient. This is a 68-year-old female who presented with a hemoglobin of 4.8 g, hematocrit of 14.1, WBC 6.6, MCV 104, platelets 291,000 with 63 polys, 27 lymphs, 8 monos reported. On peripheral smear, INR is 1.53. Chemistries are BUN 18.7, GFR of 59, iron 42, TIBC 240, ferritin 467, total bilirubin 3.0, AST 42, LDH 812, B12 is 463, folate 17, protein 7.1, albumin 4.0. The patient gives a history of progressive weakness, shortness of breath most recently over the last several days prior to coming to the emergency room to being admitted. SOCIAL HISTORY: The patient is with 3 children. Born in [place]. Currently nonsmoker. Drinks 1 glass of wine 4-6 ounces nightly. No illicit alcohol. No industrial exposures. PAST MEDICAL HISTORY: Includes hypercholesterolemia with no history of hypertension, sugar diabetes, [place], stroke, thyroid disease, kidney disease, gout, or TB. PAST SURGICAL HISTORY: Includes an appendicitis with appendectomy years ago and a C section on the 3rd child. The other 2 children were normal vaginal deliveries. REVIEW OF SYSTEMS: No headaches, no diplopia, no epistaxis, no dysphagia, shortness of breath, difficulty breathing, tiredness, fatigue. No chest pain. Mammogram 2 years ago reportedly nonrevealing. No nausea, vomiting, diarrhea, constipation, melena. No dysuria, hematuria, polyuria. No vaginal bleeding or discharge. EKG is normal sinus rhythm. No significant change when compared to prior. Chest x-ray, no evidence of active pulmonary disease. Review of peripheral smear, red blood cells macrocytic. There is Rouleaux formation. White blood cells, there is toxic granulation and some left shift. There is adequate platelet count. The reticulocyte count is 18%. MEDICATIONS: Have included atorvastatin, vitamin D, and calcium. No recent illnesses. Patient has a hemolytic anemia. 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 Justyn to be obtained. After Justyn will be obtained, the patient will be begun on steroids. Blood has been sent to the [facility] for type and cross. The patient will need an evaluation including WILLIAN. She will need perhaps a bone marrow evaluation if no definitive etiology is found. Initial screening to include rheumatologic screening. Possibility of lymphoma is in the differential. Patient when stable medically should have a CAT scan evaluation as well to look at the liver, spleen and possibility of adenopathy, which is not appreciated on physical examination. I have spoken to the and the patient and discussed the fact that her blood is being destroyed, and they understand the need for transfusion therapy, and blood is trying to be prepared at the [facility]. ROB CLARK M.D. LUIS/[id number]
[2019-09-27 07:40] LABS: INR 1.49 (0.83-1.09); PROTHROMBIN TIME (PATIENT) 17.6 SEC (9.7-13.0)
[2019-09-27 07:41] LABS: ALBUMIN 3.8 g/dl (3.4-5.0); BILIRUBIN,TOTAL 1.7 mg/dL (0.2-1); BLOOD UREA NITROGEN 19.3 mg/dL (7-18); CALCIUM 8.6 mg/dL (8.5-10.1); MAGNESIUM 2.6 mg/dL (1.8-2.4); PHOSPHOROUS 4.7 mg/dL (2.5-4.9); POTASSIUM 3.9 mmol/L (3.5-5.1); TOT PROT 6.7 g/dl (6.4-8.2)
[2019-09-27 07:51] LABS: BILIRUBIN,DIRECT 0.5 mg/dL (0.0-0.2)
--- NOTE | 2019-09-27 09:34 | PN ---
Progress Note (short form) - Note Progress Note: Pulm/CCM Seen and examined in ICU 24HR Events: Admitted yesterday for severe anemia and active hemolysis -started on steroids and getting transfusion, difficult to obtain blood -Work up so far is negaive B12, Folate wnl. -broad workup pending, Dr Lemons following -no transfusion rxn Laboratory Results - last 24 hr 09/26/19 09/26/19 09/26/19 09:11 09:11 09:11 WBC 6.6 RBC 1.36 L Hgb 4.8 L* Hct 14.1 L MCV 103.8 H MCH 35.5 H D MCHC 34.2 RDW 27.5 H Plt Count 291 D MPV 6.8 L D Absolute Neuts (auto) 4.2 Neutrophils % 63.5 Neutrophils % (Manual) 60.2 Band Neutrophils % 9.2 Lymphocytes % 26.9 D Lymphocytes % (Manual) 14.3 Monocytes % 8.6 Monocytes % (Manual) 8 Eosinophils % 0.4 Eosinophils % (Manual) 0.0 Basophils % 0.6 Basophils % (Manual) 1.0 Myelocytes % (Man) 0 Promyelocytes % (Man) 0 Blast Cells % (Manual) 0 Nucleated RBC % 0 Metamyelocytes 0 Hypochromia 1+ Platelet Estimate Normal Polychromasia 2+ Poikilocytosis 2+ Basophilic Stippling 1+ Anisocytosis 1+ Microcytosis 1+ Macrocytosis 1+ Spherocytes 1+ Target Cells 1+ Tear Drop Cells 1+ Ovalocytes 1+ Stomatocytes 1+ Retic Count 18.50 H* PT with INR 18.10 H INR 1.53 H PTT (Actin FS) 33.1 Sodium 140 Potassium 4.1 Chloride 107 Carbon Dioxide 24 Anion Gap 9 BUN 18.7 H Creatinine 1.1 Est GFR (CKD-EPI)AfAm 58.91 Est GFR (CKD-EPI)NonAf 50.83 Random Glucose 112 H Calcium 9.1 Phosphorus Magnesium Iron 42 L TIBC 240 L Iron Saturation 17 L Unsaturated IBC 198 L Ferritin 467.3 H Total Bilirubin 3.0 H Direct Bilirubin AST 42 H ALT 24 Alkaline Phosphatase 61 LD Total 812 H Creatine Kinase 43 Troponin I < 0.02 Total Protein 7.1 Albumin 4.0 Vitamin B12 463 Serum Folate 17 Urine Color Urine Appearance Urine pH Ur Specific [place] Urine Protein Urine Glucose (UA) Urine Ketones Urine Blood Urine Nitrite Urine Bilirubin Urine Urobilinogen Ur Leukocyte Esterase Urine WBC (Auto) Urine RBC (Auto) Urine Casts (Auto) U Epithel Cells (Auto) Urine Bacteria (Auto) Stool Occult Blood Rheumatoid Factor Anti-A Titer Blood Type Antibody Screen Prewarmed Antibody Srcn Antibody Identification Antigen Identification Direct Antiglob Test Crossmatch 09/26/19 09/26/19 09/26/19 09:11 09:11 10:00 WBC RBC Hgb Hct MCV MCH MCHC RDW Plt Count MPV Absolute Neuts (auto) Neutrophils % Neutrophils % (Manual) Band Neutrophils % Lymphocytes % Lymphocytes % (Manual) Monocytes % Monocytes % (Manual) Eosinophils % Eosinophils % (Manual) Basophils % Basophils % (Manual) Myelocytes % (Man) Promyelocytes % (Man) Blast Cells % (Manual) Nucleated RBC % Metamyelocytes Hypochromia Platelet Estimate Polychromasia Poikilocytosis Basophilic Stippling Anisocytosis Microcytosis Macrocytosis Spherocytes Target Cells Tear Drop Cells Ovalocytes Stomatocytes Retic Count PT with INR INR PTT (Actin FS) Sodium Potassium Chloride Carbon Dioxide Anion Gap BUN Creatinine Est GFR (CKD-EPI)AfAm Est GFR (CKD-EPI)NonAf Random Glucose Calcium Phosphorus Magnesium Iron TIBC Iron Saturation Unsaturated IBC Ferritin Total Bilirubin Direct Bilirubin AST ALT Alkaline Phosphatase LD Total Creatine Kinase Troponin I Total Protein Albumin Vitamin B12 Serum Folate Urine Color Urine Appearance Urine pH Ur Specific [place] Urine Protein Urine Glucose (UA) Urine Ketones Urine Blood Urine Nitrite Urine Bilirubin Urine Urobilinogen Ur Leukocyte Esterase Urine WBC (Auto) Urine RBC (Auto) Urine Casts (Auto) U Epithel Cells (Auto) Urine Bacteria (Auto) Stool Occult Blood Negative Rheumatoid Factor Anti-A Titer Cancelled Blood Type A POSITIVE Antibody Screen Positive H Prewarmed Antibody Srcn Positive H Antibody Identification Waiha Cancelled Antigen Identification No Result Required. Direct Antiglob Test Positive H Crossmatch See Detail 09/26/19 09/26/19 09/27/19 19:15 21:20 00:05 WBC RBC Hgb Hct MCV MCH MCHC RDW Plt Count MPV Absolute Neuts (auto) Neutrophils % Neutrophils % (Manual) Band Neutrophils % Lymphocytes % Lymphocytes % (Manual) Monocytes % Monocytes % (Manual) Eosinophils % Eosinophils % (Manual) Basophils % Basophils % (Manual) Myelocytes % (Man) Promyelocytes % (Man) Blast Cells % (Manual) Nucleated RBC % Metamyelocytes Hypochromia Platelet Estimate Polychromasia Poikilocytosis Basophilic Stippling Anisocytosis Microcytosis Macrocytosis Spherocytes Target Cells Tear Drop Cells Ovalocytes Stomatocytes Retic Count PT with INR INR PTT (Actin FS) Sodium Potassium Chloride Carbon Dioxide Anion Gap BUN Creatinine Est GFR (CKD-EPI)AfAm Est GFR (CKD-EPI)NonAf Random Glucose Calcium Phosphorus Magnesium Iron TIBC Iron Saturation Unsaturated IBC Ferritin Total Bilirubin Direct Bilirubin 0.5 H AST ALT Alkaline Phosphatase LD Total Creatine Kinase Troponin I Total Protein Albumin Vitamin B12 Serum Folate Urine Color Yellow Urine Appearance Clear Urine pH 6.5 D Ur Specific [place] 1.014 Urine Protein Negative Urine Glucose (UA) Negative Urine Ketones Negative Urine Blood Negative Urine Nitrite Negative Urine Bilirubin Negative Urine Urobilinogen 0.2 Ur Leukocyte Esterase Trace Urine WBC (Auto) 2 Urine RBC (Auto) 2 Urine Casts (Auto) 1 U Epithel Cells (Auto) 0.6 Urine Bacteria (Auto) 2.2 Stool Occult Blood Rheumatoid Factor Anti-A Titer Blood Type A POSITIVE Antibody Screen Prewarmed Antibody Srcn Antibody Identification Antigen Identification Direct Antiglob Test Positive Crossmatch 09/27/19 09/27/19 09/27/19 02:00 04:30 06:05 WBC RBC Hgb Hct MCV MCH MCHC RDW Plt Count MPV Absolute Neuts (auto) Neutrophils % Neutrophils % (Manual) Band Neutrophils % Lymphocytes % Lymphocytes % (Manual) Monocytes % Monocytes % (Manual) Eosinophils % Eosinophils % (Manual) Basophils % Basophils % (Manual) Myelocytes % (Man) Promyelocytes % (Man) Blast Cells % (Manual) Nucleated RBC % Metamyelocytes Hypochromia Platelet Estimate Polychromasia Poikilocytosis Basophilic Stippling Anisocytosis Microcytosis Macrocytosis Spherocytes Target Cells Tear Drop Cells Ovalocytes Stomatocytes Retic Count PT with INR 17.60 H INR 1.49 H PTT (Actin FS) Sodium Potassium Chloride Carbon Dioxide Anion Gap BUN Creatinine Est GFR (CKD-EPI)AfAm Est GFR (CKD-EPI)NonAf Random Glucose Calcium Phosphorus Magnesium Iron TIBC Iron Saturation Unsaturated IBC Ferritin Total Bilirubin Direct Bilirubin AST ALT Alkaline Phosphatase LD Total Creatine Kinase Troponin I Total Protein Albumin Vitamin B12 Serum Folate Urine Color Urine Appearance Urine pH Ur Specific [place] Urine Protein Urine Glucose (UA) Urine Ketones Urine Blood Urine Nitrite Urine Bilirubin Urine Urobilinogen Ur Leukocyte Esterase Urine WBC (Auto) Urine RBC (Auto) Urine Casts (Auto) U Epithel Cells (Auto) Urine Bacteria (Auto) Stool Occult Blood Rheumatoid Factor Anti-A Titer Blood Type Antibody Screen Prewarmed Antibody Srcn Antibody Identification Antigen Identification Direct Antiglob Test Positive H Positive H Crossmatch 09/27/19 09/27/19 09/27/19 06:05 06:05 06:05 WBC RBC Hgb Hct MCV MCH MCHC RDW Plt Count MPV Absolute Neuts (auto) Neutrophils % Neutrophils % (Manual) Band Neutrophils % Lymphocytes % Lymphocytes % (Manual) Monocytes % Monocytes % (Manual) Eosinophils % Eosinophils % (Manual) Basophils % Basophils % (Manual) Myelocytes % (Man) Promyelocytes % (Man) Blast Cells % (Manual) Nucleated RBC % Metamyelocytes Hypochromia Platelet Estimate Polychromasia Poikilocytosis Basophilic Stippling Anisocytosis Microcytosis Macrocytosis Spherocytes Target Cells Tear Drop Cells Ovalocytes Stomatocytes Retic Count 17.80 H* PT with INR INR PTT (Actin FS) Sodium 140 Potassium 3.9 Chloride 108 H Carbon Dioxide 24 Anion Gap 7 L BUN 19.3 H Creatinine 1.0 Est GFR (CKD-EPI)AfAm 66.10 Est GFR (CKD-EPI)NonAf 57.03 Random Glucose 175 H Calcium 8.6 Phosphorus 4.7 Magnesium 2.6 H Iron TIBC Iron Saturation Unsaturated IBC Ferritin Total Bilirubin 1.7 H Direct Bilirubin 0.5 H AST 38 H ALT 24 Alkaline Phosphatase 57 LD Total 735 H Creatine Kinase Troponin I Total Protein 6.7 Albumin 3.8 Vitamin B12 Serum Folate Urine Color Urine Appearance Urine pH Ur Specific [place] Urine Protein Urine Glucose (UA) Urine Ketones Urine Blood Urine Nitrite Urine Bilirubin Urine Urobilinogen Ur Leukocyte Esterase Urine WBC (Auto) Urine RBC (Auto) Urine Casts (Auto) U Epithel Cells (Auto) Urine Bacteria (Auto) Stool Occult Blood Rheumatoid Factor < 10.0 Anti-A Titer Blood Type Antibody Screen Prewarmed Antibody Srcn Antibody Identification Antigen Identification Direct Antiglob Test Crossmatch CBC WBC 6.7 K/mm3 (4.0-10.0) 09/27/19 11:55 RBC 2.32 M/mm3 (3.60-5.2) L 09/27/19 11:55 Hgb 7.2 GM/dL (10.7-15.3) L 09/27/19 11:55 Hct 21.8 % (32.4-45.2) L D 09/27/19 11:55 MCV 93.8 fl (80-96) D 09/27/19 11:55 MCH 31.1 pg (25.7-33.7) D 09/27/19 11:55 MCHC 33.2 g/dl (32.0-36.0) 09/27/19 11:55 RDW 19.5 % (11.6-15.6) H 09/27/19 11:55 Plt Count 267 K/MM3 (134-434) 09/27/19 11:55 MPV 7.4 fl (7.5-11.1) L 09/27/19 11:55 Absolute Neuts (auto) 5.1 K/mm3 (1.5-8.0) 09/27/19 11:55 Neutrophils % 76.0 % (42.8-82.8) 09/27/19 11:55 Neutrophils % (Manual) 60.2 % (42.8-82.8) 09/26/19 09:11 Band Neutrophils % 9.2 % 09/26/19 09:11 Lymphocytes % 19.1 % (8-40) D 09/27/19 11:55 Lymphocytes % (Manual) 14.3 % (8-40) 09/26/19 09:11 Monocytes % 4.6 % (3.8-10.2) 09/27/19 11:55 Monocytes % (Manual) 8 % (3.8-10.2) 09/26/19 09:11 Eosinophils % 0.0 % (0-4.5) D 09/27/19 11:55 Eosinophils % (Manual) 0.0 % (0-4.5) 09/26/19 09:11 Basophils % 0.3 % (0-2.0) 09/27/19 11:55 Basophils % (Manual) 1.0 % (0-2.0) 09/26/19 09:11 Myelocytes % (Man) 0 % (0-2) 09/26/19 09:11 Promyelocytes % (Man) 0 % (0-2) 09/26/19 09:11 Blast Cells % (Manual) 0 % (0-0) 09/26/19 09:11 Nucleated RBC % 1 % (0-0) H 09/27/19 11:55 Metamyelocytes 0 % (0-2) 09/26/19 09:11 Hypochromia 1+ 09/26/19 09:11 Platelet Estimate Normal 09/26/19 09:11 Polychromasia 2+ 09/26/19 09:11 Poikilocytosis 2+ 09/26/19 09:11 Basophilic Stippling 1+ 09/26/19 09:11 Anisocytosis 1+ 09/26/19 09:11 Microcytosis 1+ 09/26/19 09:11 Macrocytosis 1+ 09/26/19 09:11 Spherocytes 1+ 09/26/19 09:11 Target Cells 1+ 09/26/19 09:11 Tear Drop Cells 1+ 09/26/19 09:11 Ovalocytes 1+ 09/26/19 09:11 Stomatocytes 1+ 09/26/19 09:11 Retic Count 17.80 % (0.5-1.5) H* 09/27/19 06:05 Direct Justyn increasing with prbc Being followed by [place]/Dr Lemons Hemodyanmics stable Vital Signs Temp 98.2 F 09/27/19 06:00 Pulse 88 09/27/19 06:00 Resp 18 09/27/19 06:00 BP 91/49 L 09/27/19 06:00 Pulse Ox 100 09/27/19 05:00 Intake & Output 09/26/19 09/26/19 09/27/19 11:59 23:59 11:59 Intake Total 0 225 Output Total 400 1400 Balance -400 -1175 Weight 62.596 kg 62.188 kg 62.414 kg Intake: Oral 0 Packed Cells 225 Output: Urine 400 1400 Void 400 1400 Other: Voiding Method Toilet Toilet Bowel Movement No No Height 5 ft 5 ft Body Mass Index (BMI) 26.9 26.7 Weight Measurement Method Standing Scale Built in [facility] Weight Measurement Method Est/Stated by Patient Active Medications Atorvastatin Calcium (Lipitor -) 20 mg PO [facility] Last Admin: 09/26/19 21:34 Dose: 20 mg Chlorhexidine Gluconate (Hibiclens For Decolonization -) 1 applic TP [facility] Last Admin: 09/26/19 21:35 Dose: 1 applic Methylprednisolone Sodium Succinate (Solu-Medrol -) 90 mg IVPUSH DAILY [facility] Last Admin: 09/26/19 20:41 Dose: 90 mg Mupirocin (Bactroban Ointment (For Decolonization) -) 1 applic NS BID [facility] Stop: 10/01/19 21:59 Last Admin: 09/26/19 21:34 Dose: 1 applic Pantoprazole Sodium (Protonix Iv) 40 mg IVPUSH DAILY [facility] PE: Gen: awake, alert, very pleasant, without distress, states feeling better HEENT: conjunctival pallor, PERRL, no jvd, no cervical LAD PULM: Clear, no wheezes, no distress CV: regular, no m/r/g appreciated ABD: soft, + BS EXT: trace edema Neuro; no deficits ASSESSMENT/PLAN: 68 y.o. F PMH HLD, iron def anemia, osteoporosis presented with Hgb 4, in hemolysis now being transfused and on steroids Heme/Onc -Dr Lemons following, recs greatly appreciated -possible AIHA , on 1mg/kg solu-medorol -responding to transfusion, does have rising direct Justyn in relation to transfusion -monitor for overload, diuresis as needed -broad workup pending: Parvo, DS-DNA, WILLIAN,RF etc -may need BMB at later date -repeat hgb improved to 7.2 FEN: -regular diet Dispo: We will continue to follow the patient. Thank you for this consultative opportunity. [place] Ok for floor once hgb stable Shirley ACNP [id number]
[2019-09-27] MEDS: methylPREDNISolone NA SUCC 125 MG/2 ML VIAL IVPUSH SCH (09:41)
[2019-09-27] MEDS: PANTOPRAZOLE SODIUM 40 MG VIAL IVPUSH SCH (09:41)
[2019-09-27] MEDS: MUPIROCIN 2% TOPICAL OINTMENT FOR DECOLONIZATION NS SCH ×2 (09:42→21:17)
[2019-09-27 12:52] LABS: BASO % 0.3 % (0-2.0); HEMATOCRIT 21.8 % (32.4-45.2); HEMOGLOBIN 7.2 GM/dL (10.7-15.3); LYMPH % 19.1 % (8-40); MCH 31.1 pg (25.7-33.7); MCHC 33.2 g/dl (32.0-36.0); MEAN CELL VOLUME 93.8 fl (80-96); MEAN PLT VOLUME 7.4 fl (7.5-11.1); MONO % 4.6 % (3.8-10.2); PLATELET COUNT 267 K/MM3 (134-434); RBC 2.32 M/mm3 (3.60-5.2); RDW 19.5 % (11.6-15.6); WHITE BLOOD COUNT 6.7 K/mm3 (4.0-10.0)
--- NOTE | 2019-09-27 19:00 | PN ---
Progress Note, Physician Chief Complaint: weakness History of Present Illness: feel better, no complaints, just generalized weakness. Eating well. - Current Medication List Current Medications: Active Medications Atorvastatin Calcium (Lipitor -) 20 mg PO HS [facility] Last Admin: 09/26/19 21:34 Dose: 20 mg Chlorhexidine Gluconate (Hibiclens For Decolonization -) 1 applic TP HS [facility] Last Admin: 09/26/19 21:35 Dose: 1 applic Methylprednisolone Sodium Succinate (Solu-Medrol -) 90 mg IVPUSH DAILY [facility] Last Admin: 09/27/19 09:41 Dose: 90 mg Mupirocin (Bactroban Ointment (For Decolonization) -) 1 applic NS BID [facility] Stop: 10/01/19 21:59 Last Admin: 09/27/19 09:42 Dose: 1 applic Pantoprazole Sodium (Protonix Iv) 40 mg IVPUSH DAILY [facility] Last Admin: 09/27/19 09:41 Dose: 40 mg - Objective Vital Signs: Vital Signs Temperature 98.3 F 09/27/19 18:00 Pulse Rate 83 09/27/19 18:00 Respiratory Rate 18 09/27/19 18:00 Blood Pressure 99/56 L 09/27/19 18:00 O2 Sat by Pulse Oximetry (%) 98 09/27/19 09:00 Constitutional: Yes: Well Nourished, No Distress, Calm Eyes: Yes: Sclera Icterus HENT: Yes: Atraumatic, Normocephalic Cardiovascular: Yes: WNL, Regular Rate and Rhythm Respiratory: Yes: WNL, Regular, CTA Bilaterally Gastrointestinal: Yes: WNL, Normal Bowel Sounds, Soft Musculoskeletal: Yes: WNL Extremities: Yes: WNL Edema: No Labs: CBC, BMP 09/27/19 11:55 09/27/19 06:05 INR, PTT INR 1.49 (0.83-1.09) H 09/27/19 06:05 Problem List - Problems (1) Anemia Code(s): D64.9 - ANEMIA, UNSPECIFIED Qualifiers: Anemia type: unspecified type Qualified Code(s): D64.9 - Anemia, unspecified Assessment/Plan Assessment: Severe symptomatic hemolytic anemia HLD Plan: Patient getting hemolytic workup continue with steroids/PPI AI workup underway will need malignancy screening cultured, pending given blood today blood sent to [facility] for cross matching hematology following monitor in ICU
[2019-09-27] MEDS: ATORVASTATIN CA 20 MG TABLET (FP) PO SCH (21:14)
[2019-09-27] MEDS: CHLORHEXIDINE GLUCONATE 4% CLEANSER FOR DECOLONIZATION TP SCH (21:21)
[2019-09-28 06:15] LABS: BASO % 0.4 % (0-2.0); EOS % 0.1 % (0-4.5); HEMATOCRIT 19.2 % (32.4-45.2); LYMPH % 19.8 % (8-40); MCH 32.7 pg (25.7-33.7); MCHC 34.2 g/dl (32.0-36.0); MEAN CELL VOLUME 95.5 fl (80-96); MEAN PLT VOLUME 7.1 fl (7.5-11.1); MONO % 6.8 % (3.8-10.2); NEUT % 72.9 % (42.8-82.8); PLATELET COUNT 237 K/MM3 (134-434); RBC 2.01 M/mm3 (3.60-5.2); RDW 20.4 % (11.6-15.6); WHITE BLOOD COUNT 9.4 K/mm3 (4.0-10.0)
[2019-09-28 06:19] LABS: HEMOGLOBIN 6.6 GM/dL (10.7-15.3)
[2019-09-28 06:44] LABS: ALBUMIN 3.4 g/dl (3.4-5.0); BILIRUBIN,TOTAL 1.6 mg/dL (0.2-1); BLOOD UREA NITROGEN 31.9 mg/dL (7-18); POTASSIUM 3.8 mmol/L (3.5-5.1)
[2019-09-28] MEDS: MUPIROCIN 2% TOPICAL OINTMENT FOR DECOLONIZATION NS SCH ×2 (10:00→21:52)
[2019-09-28] MEDS: PANTOPRAZOLE SODIUM 40 MG VIAL IVPUSH SCH (10:32)
[2019-09-28] MEDS: methylPREDNISolone NA SUCC 125 MG/2 ML VIAL IVPUSH SCH (10:32)
[2019-09-28] MEDS ORDERED: PT OWN MED DRAWER 7, Y5N ONE (11:32)
--- NOTE | 2019-09-28 11:51 | PN ---
Progress Note (short form) - Note Progress Note: Progress Note Pulm/CCM Pt seen and examined in the ICU. Hgb 6.6 in am. No c/o lightheadedness, palpitation, chest pain. 1U PRBC ordered. Pt ambulating in hallway. Active Medications Atorvastatin Calcium (Lipitor -) 20 mg PO HS [facility] Last Admin: 09/27/19 21:14 Dose: 20 mg Chlorhexidine Gluconate (Hibiclens For Decolonization -) 1 applic TP HS [facility] Last Admin: 09/27/19 21:21 Dose: 1 applic Methylprednisolone Sodium Succinate (Solu-Medrol -) 90 mg IVPUSH DAILY [facility] Last Admin: 09/28/19 10:32 Dose: 90 mg Mupirocin (Bactroban Ointment (For Decolonization) -) 1 applic NS BID [facility] Stop: 10/01/19 21:59 Last Admin: 09/27/19 21:17 Dose: 1 applic Pantoprazole Sodium (Protonix Iv) 40 mg IVPUSH DAILY [facility] Last Admin: 09/28/19 10:32 Dose: 40 mg Vital Signs Period Temp Pulse Resp BP Sys/Pino Pulse Ox Last 24 Hr 98 F-98.4 F 73-96 - 86-101/49-77 98 Intake & Output 09/25/19 09/26/19 09/27/19 09/28/19 23:59 23:59 23:59 23:59 Intake Total 0 1065 100 Output Total 400 1600 Balance -400 -535 100 Weight 62.188 kg 62.414 kg 63.321 kg PE: Gen: awake, alert, NAD HEENT: conjunctival pallor, PERRL, no jvd, no cervical LAD PULM: Clear, no wheezes, no distress CV: regular, no m/r/g appreciated ABD: soft, + BS EXT: negative edema Neuro; no deficits CBC, BMP 09/28/19 05:43 09/28/19 05:43 ASSESSMENT/PLAN: 68 y.o. F PMH HLD, iron def anemia, osteoporosis presented with Hgb 4, in hemolysis now being transfused and on steroids Heme/Onc -Dr Lemons following, recs greatly appreciated -possible AIHA , on 1mg/kg solu-medorol -responding to transfusion, does have rising direct Justyn in relation to transfusion -monitor for overload, diuresis as needed -broad workup pending: Parvo, DS-DNA, WILLIAN,RF etc -Transfuse for hgb<7 -Ok for floor once hgb stable Janie Apodaca, ZEYNEP
[2019-09-28 14:36] VITALS: BMI 27.1
--- NOTE | 2019-09-28 16:33 | PN ---
Progress Note, Physician Chief Complaint: weakness History of Present Illness: feels tired today, anxious about results of blood tests. eating well, walked in halls per RN, had brown BM - Current Medication List Current Medications: Active Medications Atorvastatin Calcium (Lipitor -) 20 mg PO HS [facility] Last Admin: 09/27/19 21:14 Dose: 20 mg Chlorhexidine Gluconate (Hibiclens For Decolonization -) 1 applic TP HS [facility] Last Admin: 09/27/19 21:21 Dose: 1 applic Methylprednisolone Sodium Succinate (Solu-Medrol -) 90 mg IVPUSH DAILY [facility] Last Admin: 09/28/19 10:32 Dose: 90 mg Mupirocin (Bactroban Ointment (For Decolonization) -) 1 applic NS BID [facility] Stop: 10/01/19 21:59 Last Admin: 09/28/19 10:00 Dose: 1 applic Pantoprazole Sodium (Protonix Iv) 40 mg IVPUSH DAILY [facility] Last Admin: 09/28/19 10:32 Dose: 40 mg - Objective Vital Signs: Vital Signs Temperature 98.3 F 09/28/19 16:00 Pulse Rate 77 09/28/19 16:00 Respiratory Rate 14 09/28/19 16:00 Blood Pressure 95/63 09/28/19 16:00 O2 Sat by Pulse Oximetry (%) 100 09/28/19 09:00 Constitutional: Yes: Well Nourished, No Distress, Calm Eyes: Yes: Sclera Icterus Cardiovascular: Yes: WNL, Regular Rate and Rhythm Respiratory: Yes: WNL, Regular, CTA Bilaterally Gastrointestinal: Yes: WNL, Normal Bowel Sounds, Soft Musculoskeletal: Yes: WNL Extremities: Yes: WNL Edema: No Labs: CBC, BMP 09/28/19 05:43 09/28/19 05:43 INR, PTT INR 1.49 (0.83-1.09) H 09/27/19 06:05 Problem List - Problems (1) Anemia Code(s): D64.9 - ANEMIA, UNSPECIFIED Qualifiers: Anemia type: unspecified type Qualified Code(s): D64.9 - Anemia, unspecified Assessment/Plan Assessment: Severe symptomatic hemolytic anemia HLD Plan: h/h noted, receiving one more unit PRBC's now, irradiated/leukocyte reduced, 0 negative hemolytic anemia w/u underway, pending cw steroids and PPI will need malignancy screening urine cx pending hematology following monitor in ICU
[2019-09-28 17:06] LABS: HEMATOCRIT 28.2 % (32.4-45.2); HEMOGLOBIN 9.3 GM/dL (10.7-15.3); MCH 30.4 pg (25.7-33.7); MCHC 32.8 g/dl (32.0-36.0); MEAN CELL VOLUME 92.5 fl (80-96); MEAN PLT VOLUME 7.1 fl (7.5-11.1); PLATELET COUNT 274 K/MM3 (134-434); RBC 3.05 M/mm3 (3.60-5.2); RDW 18.7 % (11.6-15.6); WHITE BLOOD COUNT 8.8 K/mm3 (4.0-10.0)
--- NOTE | 2019-09-28 17:11 | PN ---
Progress Note (short form) - Note Progress Note: Seen in follow up. No events overnight. Hb dropped marginally this morning. Patient reports significangt fatigue compared to yesterday - receiving a unit of blood currently. Inpatient meds reviewed: Current Medications Atorvastatin Calcium (Lipitor -) 20 mg PO HS [facility] Last Admin: 09/27/19 21:14 Dose: 20 mg Chlorhexidine Gluconate (Hibiclens For Decolonization -) 1 applic TP HS [facility] Last Admin: 09/27/19 21:21 Dose: 1 applic Methylprednisolone Sodium Succinate (Solu-Medrol -) 90 mg IVPUSH DAILY [facility] Last Admin: 09/28/19 10:32 Dose: 90 mg Mupirocin (Bactroban Ointment (For Decolonization) -) 1 applic NS BID [facility] Stop: 10/01/19 21:59 Last Admin: 09/28/19 10:00 Dose: 1 applic Pantoprazole Sodium (Protonix Iv) 40 mg IVPUSH DAILY [facility] Last Admin: 09/28/19 10:32 Dose: 40 mg On Examination: Last Vital Signs Temp Pulse Resp BP Pulse Ox 98.3 F 77 14 95/63 100 09/28/19 16:00 09/28/19 16:00 09/28/19 16:00 09/28/19 16:00 09/28/19 09:00 General: In no acute distress, supine in bed. CVS: S1, S2, no gallop or murmur. Chest: breathing comfortably, clear. Abdomen: non-distended, non-tender Neuro: Alert, oriented.Non-focal Labs: CBC, BMP 09/28/19 05:43 Hb 6.6 this am. Peripheral smear reviewed - spherocytes, polychromasia. Assessment. Autoimmune hemolytic anemia - idiopathic. Today Day 3 steroids. Mild drop in Hb noted this am. Increase in fatigue subjectively reported by patient not in keeping with the degree of change in Hb. Likely other factors involved. Nevertheless transfusion not unreasonable. Continue steroids at current dose. Close observation. Daily LDH. Retic count with every CBC please.
[2019-09-28] MEDS: CHLORHEXIDINE GLUCONATE 4% CLEANSER FOR DECOLONIZATION TP SCH (21:52)
[2019-09-28] MEDS: ATORVASTATIN CA 20 MG TABLET (FP) PO SCH (21:52)
[2019-09-29 06:54] LABS: BASO % 0.3 % (0-2.0); EOS % 0.4 % (0-4.5); HEMATOCRIT 24.5 % (32.4-45.2); HEMOGLOBIN 8.1 GM/dL (10.7-15.3); LYMPH % 25.9 % (8-40); MCH 30.5 pg (25.7-33.7); MCHC 33.1 g/dl (32.0-36.0); MEAN CELL VOLUME 92.3 fl (80-96); MEAN PLT VOLUME 7.4 fl (7.5-11.1); MONO % 8.5 % (3.8-10.2); NEUT % 64.9 % (42.8-82.8); PLATELET COUNT 246 K/MM3 (134-434); RBC 2.66 M/mm3 (3.60-5.2); RDW 19.1 % (11.6-15.6); WHITE BLOOD COUNT 8.5 K/mm3 (4.0-10.0)
[2019-09-29 07:42] LABS: ALBUMIN 3.3 g/dl (3.4-5.0); BILIRUBIN,TOTAL 2.2 mg/dL (0.2-1); BLOOD UREA NITROGEN 29.8 mg/dL (7-18); CALCIUM 8.1 mg/dL (8.5-10.1); CREATININE 0.9 mg/dL (0.55-1.3); POTASSIUM 4.2 mmol/L (3.5-5.1); TOT PROT 5.9 g/dl (6.4-8.2)
[2019-09-29] MEDS ORDERED: FOLIC ACID 1 MG TABLET (FP) PO SCH (10:00)
[2019-09-29] MEDS: PANTOPRAZOLE SODIUM 40 MG VIAL IVPUSH SCH (10:27)
[2019-09-29] MEDS: methylPREDNISolone NA SUCC 125 MG/2 ML VIAL IVPUSH SCH (10:27)
[2019-09-29] MEDS: MUPIROCIN 2% TOPICAL OINTMENT FOR DECOLONIZATION NS SCH ×2 (10:30→21:40)
--- NOTE | 2019-09-29 10:57 | PN ---
Progress Note (short form) - Note Progress Note: Resident Note Consult Service: Hematology/Oncology HPI: No acute events overnight. Pt feels weak and slightly fatigued, however no other complaints. Pt denies any fever/chills, cough, shortness of breath, palpitations, chest pain, abdominal pain, weakness, numbness/tingling. PE: Vital Signs Temperature 98.0 F 09/29/19 10:00 Pulse Rate 81 09/29/19 10:00 Respiratory Rate 18 09/29/19 10:00 Blood Pressure 104/51 L 09/29/19 10:00 O2 Sat by Pulse Oximetry (%) 98 09/29/19 08:51 Gen: NAD, pleasant, awake, alert, oriented x3, laying in bed HEENT: NC/AT, EOMI, HERMILA, sclera anicteric, no conjunctival pallor, MMM Lung: CTA b/l without any rales or wheezes, on RA Card: RRR, no murmurs appreciated, S1/S2 normal Abd: Soft, NT/ND, normoactive BS, no hepatomegaly or nodules appreciated Ext: No edema, no calf tenderness, strong distal pulses Skin: No rashes or lesions noted CBC, BMP 09/29/19 05:55 09/29/19 05:55 Laboratory Tests 09/27/19 09/27/19 02:00 04:30 Direct Antiglob Test Positive H Positive H Active Medications Atorvastatin Calcium (Lipitor -) 20 mg PO HS [facility] Last Admin: 09/28/19 21:52 Dose: 20 mg Chlorhexidine Gluconate (Hibiclens For Decolonization -) 1 applic TP HS [facility] Last Admin: 09/28/19 21:52 Dose: 1 applic Folic Acid (Folic Acid -) 1 mg PO DAILY [facility] Last Admin: 09/29/19 10:27 Dose: 1 mg Methylprednisolone Sodium Succinate (Solu-Medrol -) 90 mg IVPUSH DAILY [facility] Last Admin: 09/29/19 10:27 Dose: 90 mg Mupirocin (Bactroban Ointment (For Decolonization) -) 1 applic NS BID [facility] Stop: 10/01/19 21:59 Last Admin: 09/29/19 10:30 Dose: 1 applic Pantoprazole Sodium (Protonix Iv) 40 mg IVPUSH DAILY [facility] Last Admin: 09/29/19 10:27 Dose: 40 mg Assessment/Plan: Autoimmune Hemolytic anemia --Idiopathic vs. lymphoproliferative vs. other --Day 4 of steroids; agree with 90mg dosing /day for now --Can monitor counts and if stabilized can start to taper at that point --Given risk of lymphoproliferative disease (now and later) will order FISH/ Flow cytology (paper left in pt's chart) --Pt will eventually need bone marrow biopsy at later time on an outpatient basis as well --Ordered WILLIAN, RF, LDH (would monitor LDH trends) --Added Folic acid daily regiment given BM turnover --Pt at risk for thrombotic event --Given counts stabilized with normal platelet count: can start DVT ppx today Case discussed with Dr. Boswell, ICU team, Primary team Max Magallon, - IM PGY-3
--- NOTE | 2019-09-29 12:07 | PN ---
Teaching Attending Note Name of Resident: Nely Cano ATTENDING PHYSICIAN STATEMENT I saw and evaluated the patient. I reviewed the resident's note and discussed the case with the resident. I agree with the resident's findings and plan as documented. SUBJECTIVE: Patient seen and examined in the ICU. Awake and alert. No CP or SOB. No abdominal pain. Down trending Hgb: 8.1 Intake & Output 09/26/19 09/27/19 09/28/19 09/29/19 23:59 23:59 23:59 23:59 Intake Total 0 1065 1160 Output Total 400 1600 Balance -400 -535 1160 Weight 137 lb 1.6 oz 137 lb 9.6 oz 139 lb Last Vital Signs Temp Pulse Resp BP Pulse Ox 98.0 F 81 18 104/51 L 98 09/29/19 10:00 09/29/19 10:00 09/29/19 10:00 09/29/19 10:00 09/29/19 08:51 Active Medications Atorvastatin Calcium (Lipitor -) 20 mg PO HS [facility] Last Admin: 09/28/19 21:52 Dose: 20 mg Chlorhexidine Gluconate (Hibiclens For Decolonization -) 1 applic TP HS [facility] Last Admin: 09/28/19 21:52 Dose: 1 applic Folic Acid (Folic Acid -) 1 mg PO DAILY [facility] Last Admin: 09/29/19 10:27 Dose: 1 mg Methylprednisolone Sodium Succinate (Solu-Medrol -) 90 mg IVPUSH DAILY [facility] Last Admin: 09/29/19 10:27 Dose: 90 mg Mupirocin (Bactroban Ointment (For Decolonization) -) 1 applic NS BID [facility] Stop: 10/01/19 21:59 Last Admin: 09/29/19 10:30 Dose: 1 applic Pantoprazole Sodium (Protonix Iv) 40 mg IVPUSH DAILY [facility] Last Admin: 09/29/19 10:27 Dose: 40 mg PE: Gen: awake, alert, NAD HEENT: conjunctival pallor, PERRL, no cervical LAD PULM: Clear, no wheezes CV: S1S2, RRR ABD: soft, + BS EXT: negative edema Neuro; no deficits Laboratory Results - last 24 hr 09/26/19 09/27/19 09/28/19 09:11 06:05 16:58 WBC 8.8 RBC 3.05 L Hgb 9.3 L Hct 28.2 L D MCV 92.5 MCH 30.4 MCHC 32.8 RDW 18.7 H Plt Count 274 MPV 7.1 L Absolute Neuts (auto) Neutrophils % Lymphocytes % Monocytes % Eosinophils % Basophils % Nucleated RBC % Haptoglobin < 10 L Sodium Potassium Chloride Carbon Dioxide Anion Gap BUN Creatinine Est GFR (CKD-EPI)AfAm Est GFR (CKD-EPI)NonAf Random Glucose Calcium Total Bilirubin AST ALT Alkaline Phosphatase LD Total Total Protein Albumin Blood Type A POSITIVE Antibody Screen Positive H Prewarmed Antibody Srcn Positive H Antibody Identification Waiha Direct Antiglob Test Positive H Crossmatch See Detail 09/29/19 09/29/19 05:55 05:55 WBC 8.5 RBC 2.66 L Hgb 8.1 L Hct 24.5 L MCV 92.3 MCH 30.5 MCHC 33.1 RDW 19.1 H Plt Count 246 MPV 7.4 L Absolute Neuts (auto) 5.5 Neutrophils % 64.9 Lymphocytes % 25.9 D Monocytes % 8.5 Eosinophils % 0.4 D Basophils % 0.3 Nucleated RBC % 0 Haptoglobin Sodium 141 Potassium 4.2 Chloride 110 H Carbon Dioxide 25 Anion Gap 6 L BUN 29.8 H Creatinine 0.9 Est GFR (CKD-EPI)AfAm 75.08 Est GFR (CKD-EPI)NonAf 64.78 Random Glucose 87 Calcium 8.1 L Total Bilirubin 2.2 H AST 36 ALT 40 Alkaline Phosphatase 49 LD Total 564 H Total Protein 5.9 L Albumin 3.3 L Blood Type Antibody Screen Prewarmed Antibody Srcn Antibody Identification Direct Antiglob Test Crossmatch ASSESSMENT/PLAN: Justyn (+) Hemolytic anemia HPL Iron def anemia by history Osteoporosis Steroids per Heme Normal transfusion thresholds Follow Retic count PO as tolerated Mechanical VTE prophylaxis Floor Dr Sherman
--- NOTE | 2019-09-29 12:39 | PN ---
Teaching Attending Note Name of Resident: Ortiz Rubio ATTENDING PHYSICIAN STATEMENT I saw and evaluated the patient. I reviewed the resident's note and discussed the case with the resident. I agree with the resident's findings and plan as documented. SUBJECTIVE: OBJECTIVE: Vital Signs Temperature 98.0 F 09/29/19 10:00 Pulse Rate 81 09/29/19 10:00 Respiratory Rate 18 09/29/19 10:00 Blood Pressure 104/51 L 09/29/19 10:00 O2 Sat by Pulse Oximetry (%) 98 09/29/19 08:51 General: Pallor, looks tired not in distress HEENT; mucous membranes moist, anemia, no jaundice, PERRLA, no nystagmus Neck: No JVD, supple, no bruit, thyroid palpably normal, normal carotid pulsations. Chest: Nontender, clear to auscultation bilaterally/bilateral wheezing/ bilateral basal rales. CVS: S1-S2 regular soft murmur murmur/no gallop/rub Abdomen: Nondistended, soft, bowel sounds present. Extremities: Trace edema., No cough tenderness, pulses present DINING ROOM SUPERVISOR: AO X3 , no gross motor sensory deficit CBC, BMP 09/29/19 05:55 09/29/19 05:55 LDH: 564 Active Medications Atorvastatin Calcium (Lipitor -) 20 mg PO HS [facility] Last Admin: 09/28/19 21:52 Dose: 20 mg Chlorhexidine Gluconate (Hibiclens For Decolonization -) 1 applic TP HS [facility] Last Admin: 09/28/19 21:52 Dose: 1 applic Folic Acid (Folic Acid -) 1 mg PO DAILY [facility] Last Admin: 09/29/19 10:27 Dose: 1 mg Methylprednisolone Sodium Succinate (Solu-Medrol -) 90 mg IVPUSH DAILY [facility] Last Admin: 09/29/19 10:27 Dose: 90 mg Mupirocin (Bactroban Ointment (For Decolonization) -) 1 applic NS BID [facility] Stop: 10/01/19 21:59 Last Admin: 09/29/19 10:30 Dose: 1 applic Pantoprazole Sodium (Protonix Iv) 40 mg IVPUSH DAILY [facility] Last Admin: 09/29/19 10:27 Dose: 40 mg ASSESSMENT AND PLAN: 68 years old female no significant past medical history admitted with generalized weakness work-up shows hemoglobin 4.8 with MCV 103, elevated LDH 800, reticulocytosis 20%, TB 3.0, Justyn test positive, suggestive of immune hemolytic anemia on IV steroids today hemoglobin 8.1/24.5 LDH 546, hematology on the board. Impression: Immune hemolytic anemia Problem List - Problems (1) Hemolytic anemia Assessment/Plan: Justyn positive hemolytic anemia, on IV steroids, normal platelet count, LDH is trending down, patient feels improved still work-up in progress. Will offer HIV testing, follow-up daily CBC, reticulocyte count, LDH, follow-up pending work-up. Problems reviewed: Yes Code(s): D58.9 - HEREDITARY HEMOLYTIC ANEMIA, UNSPECIFIED
--- NOTE | 2019-09-29 14:13 | PN ---
Physical Exam: SUBJECTIVE: Patient seen and examined. pt endorsed significant improvement of SOB, denies any chest pain, fatigue, fever overnight. No bloody urine or BM. OBJECTIVE: Vital Signs Period Temp Pulse Resp BP Sys/Pino Pulse Ox Last 24 Hr 97.7 F-98.3 F 64-86 14-21 95-132/51-98 98-98 GENERAL: The patient is awake, alert, and fully oriented, in no acute distress. HEAD: Normal with no signs of trauma. EYES: PERRL, extraocular movements intact, sclera anicteric, conjunctiva clear. No ptosis. ENT: oropharynx clear without exudates, moist mucous membranes. NECK: Trachea midline, full range of motion, supple. LUNGS: Breath sounds equal, clear to auscultation bilaterally, no wheezes, no crackles, no accessory muscle use. HEART: Regular rate and rhythm, S1, S2 without murmur, rub or gallop. ABDOMEN: Soft, nontender, nondistended, normoactive bowel sounds, no guarding, no rebound, no hepatosplenomegaly, no masses. EXTREMITIES: 2+ pulses, warm, well-perfused, no edema. PSYCH: Normal mood, normal affect. SKIN: Warm, dry, normal turgor, no rashes or lesions noted Laboratory Results - last 24 hr 09/27/19 09/28/19 09/29/19 06:05 16:58 05:55 WBC 8.8 8.5 RBC 3.05 L 2.66 L Hgb 9.3 L 8.1 L Hct 28.2 L D 24.5 L MCV 92.5 92.3 MCH 30.4 30.5 MCHC 32.8 33.1 RDW 18.7 H 19.1 H Plt Count 274 246 MPV 7.1 L 7.4 L Absolute Neuts (auto) 5.5 Neutrophils % 64.9 Lymphocytes % 25.9 D Monocytes % 8.5 Eosinophils % 0.4 D Basophils % 0.3 Nucleated RBC % 0 Haptoglobin < 10 L Sodium Potassium Chloride Carbon Dioxide Anion Gap BUN Creatinine Est GFR (CKD-EPI)AfAm Est GFR (CKD-EPI)NonAf Random Glucose Calcium Total Bilirubin AST ALT Alkaline Phosphatase LD Total Total Protein Albumin Sm (Gordon) Antibody <0.2 RADIO COMMUNICATIONS MECHANICIAN Antibody <0.2 Double Strand DNA Ab <1 09/29/19 05:55 WBC RBC Hgb Hct MCV MCH MCHC RDW Plt Count MPV Absolute Neuts (auto) Neutrophils % Lymphocytes % Monocytes % Eosinophils % Basophils % Nucleated RBC % Haptoglobin Sodium 141 Potassium 4.2 Chloride 110 H Carbon Dioxide 25 Anion Gap 6 L BUN 29.8 H Creatinine 0.9 Est GFR (CKD-EPI)AfAm 75.08 Est GFR (CKD-EPI)NonAf 64.78 Random Glucose 87 Calcium 8.1 L Total Bilirubin 2.2 H AST 36 ALT 40 Alkaline Phosphatase 49 LD Total 564 H Total Protein 5.9 L Albumin 3.3 L Sm (Gordon) Antibody RADIO COMMUNICATIONS MECHANICIAN Antibody Double Strand DNA Ab Active Medications Generic Name Dose Route Start Last Admin Trade Name Freq PRN Reason Stop Dose Admin Atorvastatin Calcium 20 mg 09/26/19 22:00 09/28/19 21:52 Lipitor - PO 20 mg HS [facility] Administration Chlorhexidine Gluconate 1 applic 09/26/19 22:00 09/28/19 21:52 Hibiclens For Decolonization - TP 1 applic HS [facility] Administration Folic Acid 1 mg 09/29/19 10:00 09/29/19 10:27 Folic Acid - PO 1 mg DAILY [facility] Administration Methylprednisolone Sodium Succinate 90 mg 09/26/19 19:00 09/29/19 10:27 Solu-Medrol - IVPUSH 90 mg DAILY [facility] Administration Mupirocin 1 applic 09/26/19 22:00 09/29/19 10:30 Bactroban Ointment (For Decolonization) - NS 10/01/19 21:59 1 applic BID [facility] Administration Pantoprazole Sodium 40 mg 09/27/19 10:00 09/29/19 10:27 Protonix Iv IVPUSH 40 mg DAILY [facility] Administration ASSESSMENT/PLAN: 68 y.o. F PMH HLD, iron def anemia, osteoporosis presenting for generalized weakness found to have hgb 4.8. MIXED LIVESTOCK FARM WORKER : -AOx3 -no acute issues CV: -EKG: NSR, qtc 455, no ST changes -trop neg x1 -denies chest pain -monitoring on tele, maintain MAP >65, strict BP monitoring Pulm: -SOB improved -Continue oxygen supplementation via nasal cannula; on 2L, continue to monitor -Maintain O2 sat >90% Heme/Onc: -Type & screen shows direct Marissa ab + -Hgb 4.8, hct 14.1, retic count elevated 17.8, Hapto <10, LDH 735 initially consistent with hemolysis -blood sent for crossmatch @ [place] [facility]-- blood center was unable to crossmatch, 2+ warm auto-ab rxn as per [facility] blood bank. given at least incompatible blood tonight to address severely low hgb. Transfuse slowly 100cc- - f/u type & cross/ marissa, then 100cc if no reaction. - s/p 3 units - current H/H 8.1/24.5 -closely monitoring hemodynamics -Steroids initiated: 1.5mg/kg (90mg solumedrol IV)-- continuing at current dose for now. will taper once stable according to primary team -F/u immunology workup by heme/onc - folic acid for high bone marrow turn over -Heme/onc following following-- differentials include AIHA, rheumatologic d/o, lymphoma, infectious source. Once stable total body CT scans, poss BM biopsy. Renal: -BUN/Cr 29.8/0.9 -monitor GI: -denies active bleeding -continue to monitor ID: - pt afebrile, no white count - UA and urine cx negative. -currently afebrile, monitor for fevers - off antibiotics PPX: -Protonix 40mg IV daily -SCDs in setting of low hgb #FENLTD -Holding ivf -trend lytes replete prn -NPO -Peripheral lines Dispo: transfer to [facility] surge Visit type - Emergency Visit Emergency Visit: Yes ED Registration Date: 09/26/19 Care time: The patient presented to the Emergency Department on the above date and was hospitalized for further evaluation of their emergent condition. - New Patient This patient is new to me today: No - Critical Care Critical Care patient: Yes Total Critical Care Time (in minutes): 35 Critical Care Statement: The care of this patient involved high complexity decision making to prevent further life threatening deterioration of the patient 's condition and/or to evaluate & treat vital organ system(s) failure or risk of failure. ATTENDING PHYSICIAN STATEMENT I saw and evaluated the patient. I reviewed the resident's note and discussed the case with the resident. I agree with the resident's findings and plan as documented. SUBJECTIVE: OBJECTIVE: ASSESSMENT AND PLAN:
--- NOTE | 2019-09-29 15:16 | PN ---
Physical Exam: SUBJECTIVE: Patient seen and examined. Offers no complaints. no events overnight. OBJECTIVE: Vital Signs Period Temp Pulse Resp BP Sys/Pino Pulse Ox Last 24 Hr 97.7 F-98.3 F 64-87 14-21 94-132/51-98 98-98 GENERAL: a/o x 3, in nad HEAD: Normal with no signs of trauma. EYES: PERRL, anicteric ENT: oropharynx clear without exudates, moist mucous membranes. NECK: supple. LUNGS: Breath sounds equal, clear to auscultation bilaterally HEART: Regular rate and rhythm, S1, S2 without murmur, rub or gallop. ABDOMEN: Soft, nontender, nondistended, normoactive bowel sounds EXTREMITIES: 2+ pulses, warm, well-perfused, no edema. SKIN: Warm, dry, normal turgor, no rashes or lesions noted Laboratory Results - last 24 hr 09/27/19 09/28/19 09/29/19 06:05 16:58 05:55 WBC 8.8 8.5 RBC 3.05 L 2.66 L Hgb 9.3 L 8.1 L Hct 28.2 L D 24.5 L MCV 92.5 92.3 MCH 30.4 30.5 MCHC 32.8 33.1 RDW 18.7 H 19.1 H Plt Count 274 246 MPV 7.1 L 7.4 L Absolute Neuts (auto) 5.5 Neutrophils % 64.9 Lymphocytes % 25.9 D Monocytes % 8.5 Eosinophils % 0.4 D Basophils % 0.3 Nucleated RBC % 0 Haptoglobin < 10 L Sodium Potassium Chloride Carbon Dioxide Anion Gap BUN Creatinine Est GFR (CKD-EPI)AfAm Est GFR (CKD-EPI)NonAf Random Glucose Calcium Total Bilirubin AST ALT Alkaline Phosphatase LD Total Total Protein Albumin Sm (Gordon) Antibody <0.2 CIRCULATION MAN Antibody <0.2 Double Strand DNA Ab <1 09/29/19 05:55 WBC RBC Hgb Hct MCV MCH MCHC RDW Plt Count MPV Absolute Neuts (auto) Neutrophils % Lymphocytes % Monocytes % Eosinophils % Basophils % Nucleated RBC % Haptoglobin Sodium 141 Potassium 4.2 Chloride 110 H Carbon Dioxide 25 Anion Gap 6 L BUN 29.8 H Creatinine 0.9 Est GFR (CKD-EPI)AfAm 75.08 Est GFR (CKD-EPI)NonAf 64.78 Random Glucose 87 Calcium 8.1 L Total Bilirubin 2.2 H AST 36 ALT 40 Alkaline Phosphatase 49 LD Total 564 H Total Protein 5.9 L Albumin 3.3 L Sm (Gordon) Antibody CIRCULATION MAN Antibody Double Strand DNA Ab Active Medications Generic Name Dose Route Start Last Admin Trade Name Russq PRN Reason Stop Dose Admin Atorvastatin Calcium 20 mg 09/26/19 22:00 09/28/19 21:52 Lipitor - PO 20 mg HS [facility] Administration Chlorhexidine Gluconate 1 applic 09/26/19 22:00 09/28/19 21:52 Hibiclens For Decolonization - TP 1 applic HS [facility] Administration Folic Acid 1 mg 09/29/19 10:00 09/29/19 10:27 Folic Acid - PO 1 mg DAILY [facility] Administration Methylprednisolone Sodium Succinate 90 mg 09/26/19 19:00 09/29/19 10:27 Solu-Medrol - IVPUSH 90 mg DAILY [facility] Administration Mupirocin 1 applic 09/26/19 22:00 09/29/19 10:30 Bactroban Ointment (For Decolonization) - NS 10/01/19 21:59 1 applic BID [facility] Administration Pantoprazole Sodium 40 mg 09/27/19 10:00 09/29/19 10:27 Protonix Iv IVPUSH 40 mg DAILY [facility] Administration ASSESSMENT/PLAN: 68 years old female no significant past medical history admitted with generalized weakness work-up shows hemoglobin 4.8 with MCV 103, elevated LDH 800 , reticulocytosis 20%, TB 3.0, Marissa test positive, suggestive of immune hemolytic anemia on IV steroids today hemoglobin 8.1/24.5 LDH 546, hematology on the board. #Autoimmune Hemolytic anemia -marissa positive -Idiopathic vs. lymphoproliferative vs. other -FISH, FLOW pending, Given risk of lymphoproliferative disease -Pt will eventually need bone marrow biopsy at later time on an outpatient basis as well -Day 4 of steroids; agree with 90mg dosing /day for now -Ordered WILLIAN, RF, LDH (would monitor LDH trends) -Folic acid -fu heme/onc reccs -will start dvt ppx tomorrow if counts stable -FU HIV testing #FEN -no iv fluids -monitor -sodium diet #DVT -scds dispo: will be transferred [facility] Visit type - Emergency Visit Emergency Visit: Yes ED Registration Date: 09/26/19 Care time: The patient presented to the Emergency Department on the above date and was hospitalized for further evaluation of their emergent condition. - New Patient This patient is new to me today: Yes Date on this admission: 09/29/19 - Critical Care Critical Care patient: Yes Total Critical Care Time (in minutes): 35 Critical Care Statement: The care of this patient involved high complexity decision making to prevent further life threatening deterioration of the patient 's condition and/or to evaluate & treat vital organ system(s) failure or risk of failure. ATTENDING PHYSICIAN STATEMENT I saw and evaluated the patient. I reviewed the resident's note and discussed the case with the resident. I agree with the resident's findings and plan as documented. SUBJECTIVE: OBJECTIVE: ASSESSMENT AND PLAN:
[2019-09-29 17:06] LABS: PARV B19 IGG 4.6 index (0.0-0.8); PARV B19 IGM 0.2 index (0.0-0.8)
--- NOTE | 2019-09-29 19:57 | PN ---
Progress Note (short form) - Note Progress Note: Patient seen and examined Feels well Last Vital Signs Temp Pulse Resp BP Pulse Ox 98.2 F 73 16 103/59 L 98 09/29/19 18:00 09/29/19 18:00 09/29/19 18:00 09/29/19 18:00 09/29/19 08:51 Cor: RSR, No murmurs, No gallops Lungs: Clear to P&A Abd: Soft, Normal bowel sounds, No organomegaly Ext:No significant edema Labs/Meds reviewed A/P Autoimmune hemolytic anemia - idiopathic. Today Day 4 steroids. Decrease steroids to 1mg/kg/day --30mg bid Close observation. Daily LDH. Retic count with every CBC please. Will send flow /cytogenetics/FISH to r/o lymphoproliferative disorder add folic acid Consider CT scans this admission Will consider BMBX based on clinical course
[2019-09-29 21:11] LABS: BASO % 0.1 % (0-2.0); HEMATOCRIT 24.1 % (32.4-45.2); HEMOGLOBIN 7.9 GM/dL (10.7-15.3); LYMPH % 16.7 % (8-40); MCH 29.8 pg (25.7-33.7); MCHC 32.7 g/dl (32.0-36.0); MEAN CELL VOLUME 91.3 fl (80-96); MEAN PLT VOLUME 7.4 fl (7.5-11.1); MONO % 4.9 % (3.8-10.2); NEUT % 78.3 % (42.8-82.8); PLATELET COUNT 261 K/MM3 (134-434); RBC 2.64 M/mm3 (3.60-5.2); RDW 19.7 % (11.6-15.6); WHITE BLOOD COUNT 6.1 K/mm3 (4.0-10.0)
[2019-09-29] MEDS: ATORVASTATIN CA 20 MG TABLET (FP) PO SCH (21:39)
[2019-09-29] MEDS: CHLORHEXIDINE GLUCONATE 4% CLEANSER FOR DECOLONIZATION TP SCH (21:40)
--- NOTE | 2019-09-30 09:02 | PN ---
Teaching Attending Note Name of Resident: Ortiz Rubio ATTENDING PHYSICIAN STATEMENT I saw and evaluated the patient. I reviewed the resident's note and discussed the case with the resident. I agree with the resident's findings and plan as documented. SUBJECTIVE: Patient remains at baseline no acute issue noted overnight OBJECTIVE: Vital Signs Temperature 97.7 F 09/30/19 06:00 Pulse Rate 64 09/30/19 06:00 Respiratory Rate 18 09/30/19 06:00 Blood Pressure 101/54 L 09/30/19 06:00 O2 Sat by Pulse Oximetry (%) 98 09/29/19 20:00 General: Pallor, looks tired not in distress HEENT; mucous membranes moist, anemia, no jaundice, PERRLA, no nystagmus Neck: No JVD, supple, no bruit, thyroid palpably normal, normal carotid pulsations. Chest: Nontender, clear to auscultation bilaterally/bilateral wheezing/ bilateral basal rales. CVS: S1-S2 regular soft murmur murmur/no gallop/rub Abdomen: Nondistended, soft, bowel sounds present. 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 Problem List - Problems (1) Hemolytic anemia Assessment/Plan: Justyn positive hemolytic anemia, on IV steroids, normal platelet count, LDH is trending down, patient feels improved still work-up in progress. HIV negative, LDH 604 H&H stable patient is on IV steroids, today will do CT scan chest abdomen and pelvis with IV and p.o. contrast. Problems reviewed: Yes Code(s): D58.9 - HEREDITARY HEMOLYTIC ANEMIA, UNSPECIFIED
[2019-09-30 09:10] LABS: BASO % 0.2 % (0-2.0); EOS % 0.3 % (0-4.5); HEMOGLOBIN 9.5 GM/dL (10.7-15.3); LYMPH % 24.6 % (8-40); MCHC 33.8 g/dl (32.0-36.0); MEAN CELL VOLUME 91.6 fl (80-96); MEAN PLT VOLUME 7.1 fl (7.5-11.1); MONO % 7.8 % (3.8-10.2); NEUT % 67.1 % (42.8-82.8); PLATELET COUNT 277 K/MM3 (134-434); RBC 3.06 M/mm3 (3.60-5.2); RDW 19.3 % (11.6-15.6); WHITE BLOOD COUNT 7.4 K/mm3 (4.0-10.0)
[2019-09-30] MEDS: FOLIC ACID 1 MG TABLET (FP) PO SCH (09:33)
[2019-09-30 09:34] LABS: ALBUMIN 3.8 g/dl (3.4-5.0); BLOOD UREA NITROGEN 25.5 mg/dL (7-18); CALCIUM 8.5 mg/dL (8.5-10.1); CREATININE 0.9 mg/dL (0.55-1.3); MAGNESIUM 2.6 mg/dL (1.8-2.4); PHOSPHOROUS 2.6 mg/dL (2.5-4.9); TOT PROT 6.7 g/dl (6.4-8.2)
[2019-09-30] MEDS ORDERED: MUPIROCIN 2% TOPICAL OINTMENT FOR DECOLONIZATION NS SCH (10:00)
[2019-09-30] MEDS: PANTOPRAZOLE SODIUM 40 MG VIAL IVPUSH SCH (10:16)
[2019-09-30] MEDS: methylPREDNISolone NA SUCC 40 MG/1 ML VIAL IVPB SCH ×2 (10:21→22:50)
--- NOTE | 2019-09-30 11:36 | PN ---
Physical Exam: SUBJECTIVE: Patient seen and examined. no events overnight. offers no complaints. OBJECTIVE: Vital Signs Period Temp Pulse Resp BP Sys/Pino Pulse Ox Last 24 Hr 97.7 F-98.7 F 64-87 16-20 89-112/49-61 98 GENERAL: a/o x 3, in nad HEAD: Normal with no signs of trauma. EYES: PERRL, anicteric ENT: oropharynx clear without exudates, moist mucous membranes. NECK: supple. LUNGS: Breath sounds equal, clear to auscultation bilaterally HEART: Regular rate and rhythm, S1, S2 without murmur, rub or gallop. ABDOMEN: Soft, nontender, nondistended, normoactive bowel sounds EXTREMITIES: 2+ pulses, warm, well-perfused, no edema. SKIN: Warm, dry, normal turgor, no rashes or lesions noted Laboratory Results - last 24 hr 09/26/19 09/26/19 09/26/19 09:11 15:00 19:15 WBC RBC Hgb Hct MCV MCH MCHC RDW Plt Count MPV Absolute Neuts (auto) Neutrophils % Lymphocytes % Monocytes % Eosinophils % Basophils % Nucleated RBC % Sodium Potassium Chloride Carbon Dioxide Anion Gap BUN Creatinine Est GFR (CKD-EPI)AfAm Est GFR (CKD-EPI)NonAf Random Glucose Calcium Phosphorus Magnesium Total Bilirubin AST ALT Alkaline Phosphatase LD Total Total Protein Albumin Cold Agglutinins Negative Sm (Gordon) Antibody FORMING FIXER Antibody Double Strand DNA Ab HIV 1&2 Ag/Ab, 4th Gen Parvovirus B19 IgG Ab 4.6 H Parvovirus B19 IgM Ab 0.2 Blood Type A POSITIVE Antibody Screen Positive H Prewarmed Antibody Srcn Positive H Antibody Identification Waiha Direct Antiglob Test Positive H Crossmatch See Detail 09/27/19 09/29/19 09/29/19 06:05 05:55 13:45 WBC RBC Hgb Hct MCV MCH MCHC RDW Plt Count MPV Absolute Neuts (auto) Neutrophils % Lymphocytes % Monocytes % Eosinophils % Basophils % Nucleated RBC % Sodium Potassium Chloride Carbon Dioxide Anion Gap BUN Creatinine Est GFR (CKD-EPI)AfAm Est GFR (CKD-EPI)NonAf Random Glucose Calcium Phosphorus Magnesium Total Bilirubin AST ALT Alkaline Phosphatase LD Total 564 H Total Protein Albumin Cold Agglutinins Sm (Gordon) Antibody <0.2 FORMING FIXER Antibody <0.2 Double Strand DNA Ab <1 HIV 1&2 Ag/Ab, 4th Gen Non reactive Parvovirus B19 IgG Ab Parvovirus B19 IgM Ab Blood Type Antibody Screen Prewarmed Antibody Srcn Antibody Identification Direct Antiglob Test Crossmatch 09/29/19 09/30/19 09/30/19 20:35 07:45 07:45 WBC 6.1 7.4 RBC 2.64 L 3.06 L Hgb 7.9 L 9.5 L Hct 24.1 L 28.0 L D MCV 91.3 91.6 MCH 29.8 31.0 MCHC 32.7 33.8 RDW 19.7 H 19.3 H Plt Count 261 277 MPV 7.4 L 7.1 L Absolute Neuts (auto) 4.8 5.0 Neutrophils % 78.3 D 67.1 Lymphocytes % 16.7 D 24.6 D Monocytes % 4.9 7.8 Eosinophils % 0.0 D 0.3 D Basophils % 0.1 0.2 Nucleated RBC % 0 0 Sodium 141 Potassium 4.0 Chloride 108 H Carbon Dioxide 26 Anion Gap 6 L BUN 25.5 H Creatinine 0.9 Est GFR (CKD-EPI)AfAm 75.08 Est GFR (CKD-EPI)NonAf 64.78 Random Glucose 78 Calcium 8.5 Phosphorus 2.6 Magnesium 2.6 H Total Bilirubin 2.0 H AST 37 ALT 56 Alkaline Phosphatase 56 LD Total 603 H Total Protein 6.7 Albumin 3.8 Cold Agglutinins Sm (Gordon) Antibody FORMING FIXER Antibody Double Strand DNA Ab HIV 1&2 Ag/Ab, 4th Gen Parvovirus B19 IgG Ab Parvovirus B19 IgM Ab Blood Type Antibody Screen Prewarmed Antibody Srcn Antibody Identification Direct Antiglob Test Crossmatch Active Medications Generic Name Dose Route Start Last Admin Trade Name Freq PRN Reason Stop Dose Admin Atorvastatin Calcium 20 mg 09/30/19 22:00 Lipitor - PO HS MAYRA Folic Acid 1 mg 09/30/19 10:00 09/30/19 09:33 Folic Acid - PO 1 mg DAILY MAYRA Administration Heparin Sodium (Porcine) 5,000 unit 09/30/19 22:00 Heparin - SQ BID MAYRA Methylprednisolone Sodium Succinate 30 mg 09/30/19 10:00 09/30/19 10:21 Solu-Medrol - IVPB 30 mg BID MAYRA Administration Pantoprazole Sodium 40 mg 09/30/19 10:00 09/30/19 10:16 Protonix Iv IVPUSH 40 mg DAILY MAYRA Administration ASSESSMENT/PLAN: 68 years old female no significant past medical history admitted with generalized weakness work-up shows hemoglobin 4.8 with MCV 103, elevated LDH 800 , reticulocytosis 20%, TB 3.0, Marissa test positive, suggestive of immune hemolytic anemia on IV steroids today hemoglobin 8.1/24.5 LDH 546, hematology on the board. #Autoimmune Hemolytic anemia -marissa positive -Idiopathic vs. lymphoproliferative vs. other -FISH, FLOW pending, Given risk of lymphoproliferative disease -Pt will eventually need bone marrow biopsy at later time on an outpatient basis as well -Day 5 of steroids; decreased to 30mg BID -Chest/CTAP with contrast ordered -Trend LDH -Folic acid -fu heme/onc reccs -start dvt ppx -FU HIV testing #FEN -no iv fluids -monitor -sodium diet #DVT -start dvt ppx with heparin Visit type - Emergency Visit Emergency Visit: Yes ED Registration Date: 09/26/19 Care time: The patient presented to the Emergency Department on the above date and was hospitalized for further evaluation of their emergent condition. - New Patient This patient is new to me today: Yes Date on this admission: 09/30/19 - Critical Care Critical Care patient: No ATTENDING PHYSICIAN STATEMENT I saw and evaluated the patient. I reviewed the resident's note and discussed the case with the resident. I agree with the resident's findings and plan as documented. SUBJECTIVE: OBJECTIVE: ASSESSMENT AND PLAN:
[2019-09-30 11:50] LABS: ANISOCYTOSIS 2+; MACROCYTOSIS 0; PLATELET ESTIMATE NORMAL
[2019-09-30] MEDS ORDERED: CHLORHEXIDINE GLUCONATE 4% CLEANSER FOR DECOLONIZATION TP SCH (22:00)
[2019-09-30] MEDS: ATORVASTATIN CA 20 MG TABLET (FP) PO SCH (22:49)
[2019-09-30] MEDS: HEPARIN NA (PORCINE) 5,000 UNITS/ML 1ML VIAL SQ SCH (22:49)
[2019-10-01 08:47] LABS: BASO % 0.1 % (0-2.0); HEMATOCRIT 27.6 % (32.4-45.2); HEMOGLOBIN 9.2 GM/dL (10.7-15.3); LYMPH % 19.2 % (8-40); MCH 30.5 pg (25.7-33.7); MCHC 33.4 g/dl (32.0-36.0); MEAN CELL VOLUME 91.3 fl (80-96); MEAN PLT VOLUME 7.3 fl (7.5-11.1); MONO % 5.9 % (3.8-10.2); NEUT % 74.8 % (42.8-82.8); PLATELET COUNT 275 K/MM3 (134-434); RBC 3.02 M/mm3 (3.60-5.2); RDW 20.2 % (11.6-15.6); WHITE BLOOD COUNT 7.5 K/mm3 (4.0-10.0)
--- NOTE | 2019-10-01 08:50 | PN ---
Teaching Attending Note Name of Resident: Ortiz Rubio ATTENDING PHYSICIAN STATEMENT I saw and evaluated the patient. I reviewed the resident's note and discussed the case with the resident. I agree with the resident's findings and plan as documented. SUBJECTIVE: No new complaint OBJECTIVE: Vital Signs Temperature 98.1 F 10/01/19 06:45 Pulse Rate 71 10/01/19 06:45 Respiratory Rate 10/01/19 06:45 Blood Pressure 116/56 L 10/01/19 06:45 O2 Sat by Pulse Oximetry (%) 97 09/30/19 21:00 General: Pallor, looks tired not in distress HEENT; mucous membranes moist, anemia, no jaundice, PERRLA, no nystagmus Neck: No JVD, supple, no bruit, thyroid palpably normal, normal carotid pulsations. Chest: Nontender, clear to auscultation bilaterally/bilateral wheezing/ bilateral basal rales. CVS: S1-S2 regular soft murmur murmur/no gallop/rub Abdomen: Nondistended, soft, bowel sounds present. Extremities: Trace edema., No cough tenderness, pulses present RAIL TRANSIT OPERATOR: AO X3 , no gross motor sensory deficit CBC, BMP 10/01/19 07:25 10/01/19 07:25 CT abdomen: Interval development of splenomegaly, mildly enlarged lymph node in the laurence hepatis., Small amount fluid around gallbladder. Total bilirubin: 1.3 LDH: 518 Reticulocyte count: 10.9 ASSESSMENT AND PLAN: 68 years old female no significant past medical history admitted with generalized weakness work-up shows hemoglobin 4.8 with MCV 103, elevated LDH 800, reticulocytosis 20%, TB 3.0, Justyn test positive, suggestive of immune hemolytic anemia on IV steroids , today hemoglobin is 9.2/27.6 LDH is trending down reticulocyte count is trending down Plan: We will discuss with hematology for of p.o. switch Problem List - Problems (1) Hemolytic anemia Assessment/Plan: Justyn positive hemolytic anemia, on IV steroids, normal platelet count, LDH is trending down, patient feels improved still work-up in progress. HIV negative, LDH 518 H&H 9.2/27.6 stable patient is on IV steroids, will discuss with hematology consult for p.o. switch. Code(s): D58.9 - HEREDITARY HEMOLYTIC ANEMIA, UNSPECIFIED
[2019-10-01 09:15] LABS: ALBUMIN 3.5 g/dl (3.4-5.0); BILIRUBIN,TOTAL 1.3 mg/dL (0.2-1); BLOOD UREA NITROGEN 18.6 mg/dL (7-18); CALCIUM 8.5 mg/dL (8.5-10.1); CREATININE 0.8 mg/dL (0.55-1.3); POTASSIUM 4.7 mmol/L (3.5-5.1); TOT PROT 6.2 g/dl (6.4-8.2)
--- NOTE | 2019-10-01 09:19 | PN ---
Progress Note (short form) - Note Progress Note: Resident Note Consult Service: Hematology/Oncology HPI: No acute events overnight. Talked with patient with and son at bedside. LDH downtrending (518 today) with stable H/H from yesterday. Pt reports improvement of her weakness and fatigue. Denies complaints at this time and is curious about long-term plans. PE: Vital Signs Temperature 99.7 F H 10/01/19 09:00 Pulse Rate 79 10/01/19 09:00 Respiratory Rate 20 10/01/19 09:00 Blood Pressure 117/63 10/01/19 09:00 O2 Sat by Pulse Oximetry (%) 97 09/30/19 21:00 Gen: NAD, pleasant, awake, alert, oriented x3, sitting in chair HEENT: NC/AT,HERMILA, sclera anicteric, no conjunctival pallor, MMM, no thrush Lung: CTA b/l without any rales or wheezes, on RA Card: RRR, no murmurs appreciated, S1/S2 normal Abd: Soft, NT/ND, normoactive BS, no hepatomegaly or nodules appreciated Ext: No edema, no calf tenderness, strong distal pulses CBC, BMP 10/01/19 07:25 10/01/19 07:25 Hepatic Panel Total Bilirubin 1.3 mg/dL (0.2-1) H 10/01/19 07:25 Direct Bilirubin 0.5 mg/dL (0.0-0.2) H 09/27/19 06:05 AST 26 U/L (15-37) 10/01/19 07:25 ALT 51 U/L (13-61) 10/01/19 07:25 Alkaline Phosphatase 54 U/L (45-117) 10/01/19 07:25 Albumin 3.5 g/dl (3.4-5.0) 10/01/19 07:25 Laboratory Tests 09/27/19 09/27/19 02:00 04:30 Direct Antiglob Test Positive H Positive H Active Medications Atorvastatin Calcium (Lipitor -) 20 mg PO HS MAYRA Last Admin: 09/30/19 22:49 Dose: 20 mg Folic Acid (Folic Acid -) 1 mg PO DAILY MAYRA Last Admin: 09/30/19 09:33 Dose: 1 mg Heparin Sodium (Porcine) (Heparin -) 5,000 unit SQ BID MAYRA Last Admin: 09/30/19 22:49 Dose: 5,000 unit Methylprednisolone Sodium Succinate (Solu-Medrol -) 30 mg IVPB BID [facility] Last Admin: 09/30/19 22:50 Dose: 30 mg Pantoprazole Sodium (Protonix Iv) 40 mg IVPUSH DAILY [facility] Last Admin: 09/30/19 10:16 Dose: 40 mg Assessment/Plan: 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 Can transition to oral prednisone and will likely begin taper to daily dose. --Continue Folic acid daily --Continue DVT ppx: Heparin 5,000 SQ BID Case discussed with Dr. Lemons and primary team Max Magallon, DO - IM PGY-3
[2019-10-01] MEDS: FOLIC ACID 1 MG TABLET (FP) PO SCH (11:17)
[2019-10-01] MEDS: HEPARIN NA (PORCINE) 5,000 UNITS/ML 1ML VIAL SQ SCH ×2 (11:17→21:01)
[2019-10-01] MEDS: methylPREDNISolone NA SUCC 40 MG/1 ML VIAL IVPB SCH ×2 (11:17→21:01)
[2019-10-01] MEDS: PANTOPRAZOLE SODIUM 40 MG VIAL IVPUSH SCH (11:18)
--- NOTE | 2019-10-01 16:21 | PN ---
Physical Exam: SUBJECTIVE: Patient seen and examined. No events overnight. Offers no new complaints. OBJECTIVE: Vital Signs Period Temp Pulse Resp BP Sys/Pino Pulse Ox Last 24 Hr 97.6 F-99.7 F 66-79 20-20 112-127/53-65 97 GENERAL: a/o x 3, in nad HEAD: Normal with no signs of trauma. EYES: PERRL, anicteric ENT: oropharynx clear without exudates, moist mucous membranes. NECK: supple. LUNGS: Breath sounds equal, clear to auscultation bilaterally HEART: Regular rate and rhythm, S1, S2 without murmur, rub or gallop. ABDOMEN: Soft, nontender, nondistended, normoactive bowel sounds EXTREMITIES: 2+ pulses, warm, well-perfused, no edema. SKIN: Warm, dry, normal turgor, no rashes or lesions noted Laboratory Results - last 24 hr 09/26/19 09/27/19 10/01/19 09:11 06:05 07:25 WBC 7.5 RBC 3.02 L Hgb 9.2 L Hct 27.6 L MCV 91.3 MCH 30.5 MCHC 33.4 RDW 20.2 H Plt Count 275 MPV 7.3 L Absolute Neuts (auto) 5.6 Neutrophils % 74.8 Lymphocytes % 19.2 D Monocytes % 5.9 Eosinophils % 0.0 D Basophils % 0.1 Nucleated RBC % 0 Retic Count Sodium Potassium Chloride Carbon Dioxide Anion Gap BUN Creatinine Est GFR (CKD-EPI)AfAm Est GFR (CKD-EPI)NonAf Random Glucose Calcium Total Bilirubin AST ALT Alkaline Phosphatase LD Total Total Protein Albumin WILLIAN Screen Negative Blood Type A POSITIVE Antibody Screen Positive H Prewarmed Antibody Srcn Positive H Antibody Identification Waiha Direct Antiglob Test Positive H Crossmatch See Detail 10/01/19 10/01/19 07:25 09:46 WBC RBC Hgb Hct MCV MCH MCHC RDW Plt Count MPV Absolute Neuts (auto) Neutrophils % Lymphocytes % Monocytes % Eosinophils % Basophils % Nucleated RBC % Retic Count 10.93 H* Sodium 140 Potassium 4.7 Chloride 108 H Carbon Dioxide 26 Anion Gap 6 L BUN 18.6 H Creatinine 0.8 Est GFR (CKD-EPI)AfAm 86.57 Est GFR (CKD-EPI)NonAf 74.70 Random Glucose 111 H Calcium 8.5 Total Bilirubin 1.3 H AST 26 ALT 51 Alkaline Phosphatase 54 LD Total 518 H Total Protein 6.2 L Albumin 3.5 WILLIAN Screen Blood Type Antibody Screen Prewarmed Antibody Srcn Antibody Identification Direct Antiglob Test Crossmatch Active Medications Generic Name Dose Route Start Last Admin Trade Name Ozzy PRN Reason Stop Dose Admin Atorvastatin Calcium 20 mg 09/30/19 22:00 09/30/19 22:49 Lipitor - PO 20 mg HS MAYRA Administration Folic Acid 1 mg 09/30/19 10:00 10/01/19 11:17 Folic Acid - PO 1 mg DAILY MAYRA Administration Heparin Sodium (Porcine) 5,000 unit 09/30/19 22:00 10/01/19 11:17 Heparin - SQ 5,000 unit BID MAYRA Administration Methylprednisolone Sodium Succinate 30 mg 09/30/19 10:00 10/01/19 11:17 Solu-Medrol - IVPB 30 mg BID MAYRA Administration Pantoprazole Sodium 40 mg 09/30/19 10:00 10/01/19 11:18 Protonix Iv IVPUSH 40 mg DAILY MAYRA Administration ASSESSMENT/PLAN: 68 years old female no significant past medical history admitted with generalized weakness work-up shows hemoglobin 4.8 with MCV 103, elevated LDH 800 , reticulocytosis 20%, TB 3.0, Marissa test positive, suggestive of immune hemolytic anemia on IV steroids today hemoglobin 8.1/24.5 LDH 546, hematology on the board. #Autoimmune Hemolytic anemia -marissa positive -Idiopathic vs. lymphoproliferative vs. other -FISH, FLOW pending, Given risk of lymphoproliferative disease -Pt will eventually need bone marrow biopsy at later time on an outpatient basis as well -Day 6 of steroids; Medrol 30mg BID. Will transition to PO tomorrow -Chest/CTAP: Interval development of splenomegaly, mildly enlarged lymph node in the laurence hepatis., Small amount fluid around gallbladder. -Trend LDH -Folic acid -fu heme/onc reccs -dvt ppx hep sq #FEN -no iv fluids -monitor -sodium diet #DVT -start dvt ppx with heparin likely dc in the AM Visit type - Emergency Visit Emergency Visit: Yes ED Registration Date: 09/26/19 Care time: The patient presented to the Emergency Department on the above date and was hospitalized for further evaluation of their emergent condition. - New Patient This patient is new to me today: Yes Date on this admission: 10/01/19 - Critical Care Critical Care patient: No ATTENDING PHYSICIAN STATEMENT I saw and evaluated the patient. I reviewed the resident's note and discussed the case with the resident. I agree with the resident's findings and plan as documented. SUBJECTIVE: OBJECTIVE: ASSESSMENT AND PLAN:
--- NOTE | 2019-10-01 18:56 | PATH ---
Surgical Pathology Report Patient Name: LUISA KEITA [facility]. Rec. #: [id number] /Age/Gender: 1950 (Age: 68) / F Account: [id number] Location: [address] [place] [address] Taken: 09/30/2019 Received: 09/30/2019 Reported: 10/01/2019 Physicians: Andreia Silva M.D. Specimen(s) Received PERIPHERAL BLOOD Clinical History Warm autoimmune hemolytic anemia, rule out lymphoproliferative disorder Final Diagnosis COMPREHENSIVE FLOW CYTOMETRY performed and interpreted at [place], [place] ([id number]) INTERPRETATION: Low-level light chain-restricted b-cell population. See comment. Comment: The presence of a low-level light-chain restricted B-cell population may represent indolent monoclonal B-cell lymphocytosis or possibly minimal involvement by a systemic B-cell lymphoproliferative disorder. Correlate with clinical history and other laboratory testing for further evaluation. Phenotype: A minor population of CD20+ B cells detected that coexpress lambda light chain, and is negative for CD5 and CD10, comprising 6% of all analyzed white blood cells. Other lymphocytes include polyclonal B cells, NK cells and immunophenotypically normal CD4+ and CD8+ T cells in normal proportions. Granulocytes are immunophenotypically mature. Cytomorphology: Smear preparation shows peripheral blood with mature granulocytes, lymphocytes and monocytes seen. LYMPHOMA FISH PANEL performed and interpreted at [place], [place] ([id number]) INTERPRETATION: No IGH/BCL2 t(14;18) translocation is detected. No CCND1/IGH t(11;14) translocation is detected. No MYC (8q24) rearrangement is detected. No BCL6 (3q27) rearrangement is detected. See [facility] reports for additional details. Electronically Signed Naomi Hopper M.D. Addendum Reported: 10/08/2019 Addendum Diagnosis CYTOGENETIC KARYOTYPE ANALYSIS performed and interpreted at [facility]([id number]) shows the following: RESULTS: 46,XX[5] - LIMITED STUDY INTERPRETATION: Normal Karyotype This specimen produced only five analyzable metaphase cells, precluding a complete twenty-cell analysis. Although chromosome morphology and band resolution are somewhat sub-optimal, no consistent numerical or structural chromosome abnormalities were observed. A repeat sample, when clinically appropriate, may produce additional cytogenetic information and is recommended. This normal result does not rule out a neoplasm. Subtle rearrangements or the presence of an aberrant clone in a low proportion of cells cannot be ruled out. Correlation with other clinical and hematologic data is suggested. Analysis was performed on cells from an unstimulated tissue culture and a tissue culture that was stimulated with lymphoid mitogens. See [facility] report for additional details. Naomi Hopper M.D. Gross Description Received labelled with the patient's name are two green top tubes of peripheral blood which are forwarded to [facility] for ancillary testing. MLSZ/09/30/2019 sanml/09/30/2019
[2019-10-01] MEDS: ATORVASTATIN CA 20 MG TABLET (FP) PO SCH (21:00)
--- NOTE | 2019-10-01 21:15 | PN ---
Teaching Attending Note Name of Resident: Max Magallon ATTENDING PHYSICIAN STATEMENT I saw and evaluated the patient. I reviewed the resident's note and discussed the case with the resident. I agree with the resident's findings and plan as documented. SUBJECTIVE: Patient seen and examined Still with active hemolysis Hb- stable . Retic 10 CT with stable pulmonary nodule , development of splenomegaly and prominent RPN lymph nodes This raises concern for possible underlying lymphoproliferative disorder Last Vital Signs Temp Pulse Resp BP Pulse Ox 98.1 F 65 20 105/54 L 97 10/01/19 18:00 10/01/19 18:00 10/01/19 18:00 10/01/19 18:00 10/01/19 09:00 HEENT: XOCHILT, EOM Intact Cor: RSR, No murmurs, No gallops Lungs: Clear to P&A Abd: Soft, Normal bowel sounds, No organomegaly Current Medications Generic Name Dose Route Start Last Admin Trade Name Freq PRN Reason Stop Dose Admin Atorvastatin Calcium 20 mg 09/30/19 22:00 10/01/19 21:00 Lipitor - PO 20 mg HS MAYRA Administration Folic Acid 1 mg 09/30/19 10:00 10/01/19 11:17 Folic Acid - PO 1 mg DAILY MAYRA Administration Heparin Sodium (Porcine) 5,000 unit 09/30/19 22:00 10/01/19 21:01 Heparin - SQ 5,000 unit BID MAYRA Administration Methylprednisolone Sodium Succinate 30 mg 09/30/19 10:00 10/01/19 21:01 Solu-Medrol - IVPB 30 mg BID MAYRA Administration Pantoprazole Sodium 40 mg 09/30/19 10:00 10/01/19 11:18 Protonix Iv IVPUSH 40 mg DAILY MAYRA Administration Impression: Justyn poitive hemolytic anemia Ongoing hemolysis Splenomegaly and prominent RPN nodes ( does not meet size criteria) Change to prednisone 60 mg / oral protonix Continue to monitor LDH, Retic and Hb/Hct Consider BM OBJECTIVE: ASSESSMENT AND PLAN:
--- NOTE | 2019-10-02 08:25 | PN ---
Teaching Attending Note Name of Resident: Ortiz Rubio ATTENDING PHYSICIAN STATEMENT I saw and evaluated the patient. I reviewed the resident's note and discussed the case with the resident. I agree with the resident's findings and plan as documented. SUBJECTIVE: Patient remained asymptomatic OBJECTIVE: Vital Signs Temperature 98.5 F 10/02/19 05:00 Pulse Rate 65 10/02/19 05:00 Respiratory Rate 18 10/02/19 05:00 Blood Pressure 124/64 10/02/19 05:00 O2 Sat by Pulse Oximetry (%) 99 10/01/19 21:00 General: Pallor, looks tired not in distress HEENT; mucous membranes moist, anemia, no jaundice, PERRLA, no nystagmus Neck: No JVD, supple, no bruit, thyroid palpably normal, normal carotid pulsations. Chest: Nontender, clear to auscultation bilaterally/bilateral wheezing/ bilateral basal rales. CVS: S1-S2 regular soft murmur murmur/no gallop/rub Abdomen: Nondistended, soft, bowel sounds present. Extremities: Trace edema., No cough tenderness, pulses present SUSTAINABLE DESIGN COORDINATOR: AO X3 , no gross motor sensory deficit CBC, BMP 10/02/19 07:10 10/02/19 07:10 CT abdomen: Interval development of splenomegaly, mildly enlarged lymph node in the laurence hepatis., Small amount fluid around gallbladder. Total bilirubin: 1.2 LDH: 470 Reticulocyte count: 12.8 ASSESSMENT AND PLAN: 68 years old female no significant past medical history admitted with generalized weakness work-up shows hemoglobin 4.8 with MCV 103, elevated LDH 800, reticulocytosis 20%, TB 3, Justyn test positive, suggestive of immune hemolytic anemia yesterday evaluated by the security operations specialist GI/hematology switch to p.o. prednisone 60 mg Plan: Discussed critical limb peripheral smear report with hematology Problem List - Problems (1) Hemolytic anemia Assessment/Plan: Justyn positive hemolytic anemia, on IV steroids, normal platelet count, LDH is trending down, patient feels improved still work-up in progress. HIV negative, today LDH 470 8 H&H 9.5 stable today we will switch to p.o. prednisone 60 mg daily as per hematology recommendations patient is scheduled for bone marrow biopsy. Code(s): D58.9 - HEREDITARY HEMOLYTIC ANEMIA, UNSPECIFIED
[2019-10-02 09:05] LABS: BASO % 0.2 % (0-2.0); EOS % 0.1 % (0-4.5); HEMATOCRIT 28.8 % (32.4-45.2); HEMOGLOBIN 9.5 GM/dL (10.7-15.3); LYMPH % 18.6 % (8-40); MCH 30.7 pg (25.7-33.7); MCHC 33.2 g/dl (32.0-36.0); MEAN CELL VOLUME 92.5 fl (80-96); MEAN PLT VOLUME 7.4 fl (7.5-11.1); MONO % 6.5 % (3.8-10.2); NEUT % 74.6 % (42.8-82.8); PLATELET COUNT 287 K/MM3 (134-434); RBC 3.11 M/mm3 (3.60-5.2); RDW 21.7 % (11.6-15.6); RETICULOCYTES 12.85 % (0.5-1.5); WHITE BLOOD COUNT 8.3 K/mm3 (4.0-10.0)
[2019-10-02 09:35] LABS: ALBUMIN 3.5 g/dl (3.4-5.0); BILIRUBIN,TOTAL 1.2 mg/dL (0.2-1); BLOOD UREA NITROGEN 23.9 mg/dL (7-18); CALCIUM 8.9 mg/dL (8.5-10.1); CREATININE 0.8 mg/dL (0.55-1.3); TOT PROT 6.3 g/dl (6.4-8.2)
[2019-10-02] MEDS: FOLIC ACID 1 MG TABLET (FP) PO SCH (10:17)
[2019-10-02] MEDS: HEPARIN NA (PORCINE) 5,000 UNITS/ML 1ML VIAL SQ SCH ×2 (10:17→22:00)
[2019-10-02] MEDS: PANTOPRAZOLE SODIUM 40 MG VIAL IVPUSH SCH (10:17)
[2019-10-02] MEDS: predniSONE 20 MG TABLET (UD) PO SCH (10:48)
--- NOTE | 2019-10-02 15:15 | PN ---
Physical Exam: SUBJECTIVE: Patient seen and examined. no complaints. no events overnight OBJECTIVE: Vital Signs Period Temp Pulse Resp BP Sys/Pino Pulse Ox Last 24 Hr 98.1 F-98.5 F 65-75 18-20 105-124/54-64 99-99 GENERAL: a/o x 3, in nad HEAD: Normal with no signs of trauma. EYES: PERRL, anicteric ENT: oropharynx clear without exudates, moist mucous membranes. NECK: supple. LUNGS: Breath sounds equal, clear to auscultation bilaterally HEART: Regular rate and rhythm, S1, S2 without murmur, rub or gallop. ABDOMEN: Soft, nontender, nondistended, normoactive bowel sounds EXTREMITIES: 2+ pulses, warm, well-perfused, no edema. SKIN: Warm, dry, normal turgor, no rashes or lesions noted Laboratory Results - last 24 hr 10/02/19 10/02/19 07:10 07:10 WBC 8.3 RBC 3.11 L Hgb 9.5 L Hct 28.8 L MCV 92.5 MCH 30.7 MCHC 33.2 RDW 21.7 H Plt Count 287 MPV 7.4 L Absolute Neuts (auto) 6.2 Neutrophils % 74.6 Lymphocytes % 18.6 Monocytes % 6.5 Eosinophils % 0.1 D Basophils % 0.2 Nucleated RBC % 0 Retic Count 12.85 H* D Sodium 141 Potassium 5.0 Chloride 106 Carbon Dioxide 28 Anion Gap 6 L BUN 23.9 H Creatinine 0.8 Est GFR (CKD-EPI)AfAm 86.57 Est GFR (CKD-EPI)NonAf 74.70 Random Glucose 99 Calcium 8.9 Total Bilirubin 1.2 H AST 20 ALT 49 Alkaline Phosphatase 53 LD Total 474 H Total Protein 6.3 L Albumin 3.5 Active Medications Generic Name Dose Route Start Last Admin Trade Name Freq PRN Reason Stop Dose Admin Atorvastatin Calcium 20 mg 09/30/19 22:00 10/01/19 21:00 Lipitor - PO 20 mg HS MAYRA Administration Folic Acid 1 mg 09/30/19 10:00 10/02/19 10:17 Folic Acid - PO 1 mg DAILY MAYRA Administration Heparin Sodium (Porcine) 5,000 unit 09/30/19 22:00 10/02/19 10:17 Heparin - SQ 5,000 unit BID MAYRA Administration Pantoprazole Sodium 40 mg 09/30/19 10:00 10/02/19 10:17 Protonix Iv IVPUSH 40 mg DAILY MAYRA Administration Prednisone 60 mg 10/02/19 10:00 10/02/19 10:48 Deltasone - PO 60 mg DAILY MAYRA Administration ASSESSMENT/PLAN: 68 years old female no significant past medical history admitted with generalized weakness work-up shows hemoglobin 4.8 with MCV 103, elevated LDH 800 , reticulocytosis 20%, TB 3.0, Marissa test positive, suggestive of immune hemolytic anemia on IV steroids today hemoglobin 8.1/24.5 LDH 546, hematology on the board. #Autoimmune Hemolytic anemia -marissa positive -Idiopathic vs. lymphoproliferative vs. other -FISH, FLOW pending, Given risk of lymphoproliferative disease -BM biopsy planned -Day 7 of steroids;now on PO steroids 60mg daily -Chest/CTAP: Interval development of splenomegaly, mildly enlarged lymph node in the laurence hepatis., Small amount fluid around gallbladder. -Trend LDH -Folic acid -fu heme/onc reccs -dvt ppx hep sq #FEN -no iv fluids -monitor -sodium diet #DVT -start dvt ppx with heparin Visit type - Emergency Visit Emergency Visit: Yes ED Registration Date: 09/26/19 Care time: The patient presented to the Emergency Department on the above date and was hospitalized for further evaluation of their emergent condition. - New Patient This patient is new to me today: Yes Date on this admission: 10/02/19 - Critical Care Critical Care patient: No ATTENDING PHYSICIAN STATEMENT I saw and evaluated the patient. I reviewed the resident's note and discussed the case with the resident. I agree with the resident's findings and plan as documented. SUBJECTIVE: OBJECTIVE: ASSESSMENT AND PLAN:
[2019-10-02] MEDS: ATORVASTATIN CA 20 MG TABLET (FP) PO SCH (22:01)
--- NOTE | 2019-10-03 08:00 | DS ---
Physical Examination Vital Signs: Vital Signs Temperature 98.3 F 10/03/19 05:52 Pulse Rate 65 10/03/19 05:52 Respiratory Rate 18 10/03/19 05:52 Blood Pressure 122/80 10/03/19 05:52 O2 Sat by Pulse Oximetry (%) 99 10/02/19 21:00 General: Pallor, looks tired not in distress HEENT; mucous membranes moist, anemia, no jaundice, PERRLA, no nystagmus Neck: No JVD, supple, no bruit, thyroid palpably normal, normal carotid pulsations. Chest: Nontender, clear to auscultation bilaterally/bilateral wheezing/ bilateral basal rales. CVS: S1-S2 regular soft murmur murmur/no gallop/rub Abdomen: Nondistended, soft, bowel sounds present. Extremities: Trace edema., No cough tenderness, pulses present FINE HAIRER: AO X3 , no gross motor sensory deficit Labs: CBC, BMP CBC, BMP 10/03/19 07:40 10/03/19 07:40 Discharge Summary Problems reviewed: Yes Reason For Visit: ANEMIA Current Active Problems Anemia (Acute) Hemolytic anemia (Acute) Hospital Course: 68-year-old female no significant past medical history except hypercholesteremia only on Lipitor at home, presented with 1 week history of feeling weak tired and exhausted, in the ED work-up shows hemoglobin 4.8, macrocytosis MCV 103, elevated LDH, TB 3.0 and 800, reticulocytes more than 20% consistent with acute hemolytic anemia, Justyn test positive patient was initially transferred to ICU for close observation, received packed RBC, evaluated by him at hematology put on Solu-Medrol and switch to p.o. prednisone 60 mg, patient underwent bone marrow biopsy and flow cytometry date is suggestive of possibility of lympho-proliferative disorder patient has CT scan chest and abdomen that shows splenomegaly, patient keeps on improving today hemoglobin is 10.1 on p.o. prednisone 60 mg/day and cleared by hemato- oncology to discharge home follow-up in a week Condition: Stable - Instructions Referrals: Ewa Giang MD [Primary Care Provider] - 1 Week Miguel Lemons MD [Staff Physician] - 1 Week Disposition: HOME - Home Medications Comprehensive Discharge Medication List: Ambulatory Orders Atorvastatin Ca [Lipitor (Restricted To Cardiology)] 20 mg PO HS 03/17/13 Prescription Drug Monitoring Program (I-STOP) results: I-STOP reviewed and no issues identified
[2019-10-03 08:34] VITALS: BP 140/55; PULSE 73; TEMP 98
[2019-10-03] MEDS ORDERED: PT OWN MED DRAWER 7, Y5N ONE (09:03)
[2019-10-03 09:17] LABS: BASO % 0.3 % (0-2.0); EOS % 0.6 % (0-4.5); HEMATOCRIT 29.4 % (32.4-45.2); LYMPH % 25.1 % (8-40); MCH 30.9 pg (25.7-33.7); MONO % 9.4 % (3.8-10.2); NEUT % 64.6 % (42.8-82.8); PLATELET COUNT 296 K/MM3 (134-434); RBC 3.23 M/mm3 (3.60-5.2); RDW 21.3 % (11.6-15.6); RETICULOCYTES 8.62 % (0.5-1.5); WHITE BLOOD COUNT 7.5 K/mm3 (4.0-10.0)
[2019-10-03] MEDS: FOLIC ACID 1 MG TABLET (FP) PO SCH (09:24)
[2019-10-03] MEDS: predniSONE 20 MG TABLET (UD) PO SCH (09:24)
[2019-10-03] MEDS: PANTOPRAZOLE SODIUM 40 MG VIAL IVPUSH SCH (09:24)
[2019-10-03] MEDS: HEPARIN NA (PORCINE) 5,000 UNITS/ML 1ML VIAL SQ SCH (09:24)
[2019-10-03 09:38] LABS: ALBUMIN 3.6 g/dl (3.4-5.0); BILIRUBIN,TOTAL 1.3 mg/dL (0.2-1); BLOOD UREA NITROGEN 25.9 mg/dL (7-18); CALCIUM 8.9 mg/dL (8.5-10.1); CREATININE 0.9 mg/dL (0.55-1.3); POTASSIUM 4.4 mmol/L (3.5-5.1); TOT PROT 6.6 g/dl (6.4-8.2)
[2019-10-03 11:02] LABS: ANISOCYTOSIS 1+; MACROCYTOSIS 0; PLATELET ESTIMATE NORMAL
--- NOTE | 2019-10-03 11:41 | PN ---
Progress Note (short form) - Note Progress Note: Patient seen Met with patient and Discussed diagosis of hemolytic aemia Discussed possible etiologies including idiopathic variety Discussed need for Prednisoe, Gi prophylaxis, and folate. If long ter prednisone os to be given, to consider valtrex +/_ mepron. To be discharged on prednisone -- 60 mg daily - offic follow up in one week.
[2019-10-03 17:09] LABS: FREE KAPPA,SERUM 17.1 mg/L (3.3-19.4)
--- NOTE | 2019-10-03 20:34 | PN ---
Progress Note (short form) - Note Progress Note: Patient seen and examined Feels well AFVSS Cor: RSR, No murmurs, No gallops Lungs: Clear to P&A Abd: Soft, Normal bowel sounds, No organomegaly Ext:No significant edema Labs/Meds reviewed A/P Autoimmune hemolytic anemia - idiopathic. Prednisone tapered to 60mg daily For bone marrow biopsy today CT --laurence hepatis adenopathy needs f/u, splenomegaly. Flow -- CD20+ B cells Discussed course of hemolytic anemia in great detail with patient and family
--- NOTE | 2019-10-16 10:49 | PATH ---
Surgical Pathology Report Patient Name: LUISA KEITA [facility]. Rec. #: [id number] /Age/Gender: 1950 (Age: 68) / F Account: [id number] Location: [address] [place] [address]/[facility] Taken: 10/02/2019 Received: 10/03/2019 Reported: 10/16/2019 Physicians: Andreia Silva M.D. Specimen(s) Received A: BONE MARROW BIOPSY B: BONE MARROW SMEARS 11 SLIDES C: BONE MARROW BLOOD 2 GREEN AND 2 LAV TUBES Clinical History Hemolytic anemia (autoimmune) Final Diagnosis BONE MARROW MORPHOLOGY ANALYSIS (specimen A and B) performed and interpreted at [facility] ([id number]) shows the following: DIAGNOSIS: BONE MARROW, UNSPECIFIED SITE, SMEARS, CLOT AND BIOPSY: - VARIABLE AND NORMOCELLULAR FOR AGE MARROW SHOWS MATURING TRILINEAGE HEMATOPOIESIS AND NO EVIDENCE OF OVERT OR ADVANCED MYELODYSPLASIA, ACUTE LEUKEMIA, METASTATIC NEOPLASM OR PLASMA CELL NEOPLASM. - NO OBVIOUS EVIDENCE OF LYMPHOID AGGREGATES BUT SEEMS TO SHOW SMALL AMOUNT OF SLIGHTLY B-CELL RICH LYMPHOID INFILTRATE AND FLOW CYTOMETRY ANALYSIS ([id number]) ALSO FOUND A SMALL CLONAL B-CELL POPULATION (SEE COMMENT AND DESCRIPTION). COMMENT: Due to the extensive aspiration artifact, the findings may not be entirely hotel services sales representative. However, the immunophenotypic findings (by flow and IHC studies) of the possible clonal B-cell minimal involvement may suggest minimal low-grade B-cell lymphoproliferative disorder involvement. Sample submitted for the pending molecular b-cell gene rearrangement may help to further confirm the monoclonal nature of the B cells. Another adequately obtained marrow biopsy sample submitted for further pathologic evaluation is suggested, if clinically indicated and feasible. This case was reviewed by Dr. Marcio Boland from [facility] this diagnosis reflects his opinion. Please see Integrated report ([id number]) for additional details. 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 - NO IMMUNOPHENOTYPIC EVIDENCE OF ABNORMAL MYELOID MATURATION, INCREASED BLAST POPULATION OR AN ABNORMAL T-CELL POPULATION. Comment Due to the reticulin fibrosis often associated with lymphoid aggregates in the bone marrow, clonal lymphoid cells identified may be underestimated by flow cytometry. Please refer to the pending bone marrow morphology [id number]), cytogenetic study results for detail. PHENOTYPE: A small monoclonal lambda B-cell population lacking CD5, CD10 and CD103 expression is detected (3-4% of total). - No abnormal myeloid maturation is seen. There is no increase in CD34 positive blasts, and they comprise 0.2% of the total cells. The T-cells (4.3% of total) show no patterson T-cell antigen deletion. The CD4:CD8 ratio is within normal limits. CD56+ and/or CD57+ T/NK-large granular lymphocytes are within normal limits (0.3% of total cells). The myeloid/neutrophilic elements represent 84.6% of total cells and CD14/CD64 positive monocytic elements represent 4.1% of total cells without aberrant expression. Eosinophils are adequate in number and represent 0.3% of total cells. A significant population of bright CD38 positive plasma cells is not identified. See Integrated report ([id number]) for additional details. CHROMOSOME ANALYSIS PERFORMED AND INTERPRETED AT [facility], [place], [place] ([id number]) SHOWS THE FOLLOWING: RESULTS: 46,XX,del(7)(q22q36)[3]/46,XX,dup(12)(q12q24.3)[2]/46,XX[16] Abnormal karyotype, female Interpretation: Two distinct clones were identified. 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 Two other cells exhibited a duplication of the long arm of chromosome 12. No abnormalities were evident in the remaining sixteen cells. The clinical significance of these aberrations is unclear. Clinical correlation and follow up are recommended. See [facility] report for additional details (Specimen #: [id number]) This case was discussed with Dr. Silva on 10/16/2019. Electronically Signed Elizabeth Wilkinson M.D. Addendum Reported: 10/16/2019 Addendum Diagnosis Molecular Oncology testing performed and interpreted at [facility], ([id number]) shows the following: Testing Performed: Immunoglobulin Heavy Chain (IgH) Gene Rearrangement by PCR ANALYSIS Results: Clonal B-cell population detected. Interpretation: POSITIVE for a clonal IgH gene rearrangement. Comment: Positive results most often indicate a B-cell malignancy. Rarely, positive results may be seen in non-malignant conditions. Results should be interpreted in the context of clinical status and correlation with cytogenetics, morphology, flow cytometry, histopathology and immunophenotype. This analysis can detect abnormal populations comprising >1-2% of the total cells present in the sample. See integrated oncology report ([id number]) for additional details. Elizabeth Wilkinson M.D. Gross Description A. Received in formalin labeled "bone marrow biopsy," is a 0.6 x 0.4 x 0.1 cm aggregate of lloyd bone fragments. Also received within the same container is a 3.5 x 3.0 x 0.3 cm aggregate of red-brown blood clot. The specimen is entirely submitted in 2 cassettes as follows: 1-bone fragments, following decalcification; 2-clot. B. Received are 11 bone marrow aspiration smear slides. C. Received are 2 green top tubes and 2 lavender top tubes of blood which are sent to [facility]. 10/03/2019 saudi10/03/2019
== END 2019-10-03 13:10 | disposition home or self-care (01) | DRG 841 ==
LOC: JER 08:39 → JERBED 10:35 → J5S 12:50 → JICU 18:26 → J5S 09-29 22:34
PROVIDERS: ADMIT Internal Medicine; ATTEND Internal Medicine
PROC: 30233N1 Transfusion of Nonautologous Red Blood Cells into Peripheral Vein, Percutaneous Approach (ICD-10-PCS; 2019-09-27)
PROC: 07DR3ZX Extraction of Iliac Bone Marrow, Percutaneous Approach, Diagnostic (ICD-10-PCS; principal; 2019-10-02)
DX: D47.9 Neoplasm of uncertain behavior of lymphoid, hematopoietic and related tissue, unspecified (principal); D59.1 Other autoimmune hemolytic anemias; E78.00 Pure hypercholesterolemia, unspecified; D50.0 Iron deficiency anemia secondary to blood loss (chronic); M81.0 Age-related osteoporosis without current pathological fracture; R16.1 Splenomegaly, not elsewhere classified; M35.9 Systemic involvement of connective tissue, unspecified
CPT/HCPCS: 20225; 36415; 36430; 36511; 71045-TC-FY; 71260-TC; 74177-TC; 80053; 81003; 82136; 82248; 82272; 82550; 82607; 82728; 82746; 82784; 83010; 83540; 83550; 83615; 83735; 83883; 83918; 84100; 84443; 84484; 85025; 85027; 85044; 85610; 85730; 86038; 86157; 86225; 86235; 86431; 86747; 86850; 86870; 86880; 86900; 86901; 86902; 86922; 87086; 87389; 87899; 88300-TC; 93005; 93010; 99285-25; J1644; J7030; P9038; P9058; Q9967

== ENCOUNTER 2020-04-05 07:24 | Day surgery (SDC) | payer OTHER, BC ==
[~2020-04-05 07:24] MED LIST: ACETAMINOPHEN 325 MG TABLET (FP) PO ONE; DEXAMETHASONE SODIUM PHOSPHATE 12 MG, DIPHENHYDRAMINE 50 MG in SODIUM CHLORIDE 100 ML IVPB ONE; RITUXIMAB IVPB ONE; SODIUM CHLORIDE IVPB ONE
[2020-04-05] MEDS ORDERED: RITUXIMAB IVPB ONE ×2 (07:30→10:30)
[2020-04-05] MEDS ORDERED: SODIUM CHLORIDE IVPB ONE ×2 (07:30→10:30)
[2020-04-05] MEDS ORDERED: DEXAMETHASONE SODIUM PHOSPHATE 12 MG, DIPHENHYDRAMINE 50 MG in SODIUM CHLORIDE 100 ML IVPB ONE (10:00)
[2020-04-05] MEDS ORDERED: ACETAMINOPHEN 325 MG TABLET (FP) PO ONE (10:00)
[2020-04-05 10:48] LABS: ALBUMIN 4.2 g/dl (3.4-5.0); BILIRUBIN,DIRECT 0.2 mg/dL (0.0-0.2); BILIRUBIN,TOTAL 0.6 mg/dL (0.2-1); BLOOD UREA NITROGEN 25.4 mg/dL (7-18); CALCIUM 9.4 mg/dL (8.5-10.1); CREATININE 1.1 mg/dL (0.55-1.3); MAGNESIUM 2.5 mg/dL (1.8-2.4); POTASSIUM 3.8 mmol/L (3.5-5.1); TOT PROT 7.3 g/dl (6.4-8.2); URIC ACID 5.2 mg/dL (2.6-7.2)
[2020-04-05 10:51] LABS: BASO % 0.5 % (0-2.0); EOS % 0.6 % (0-4.5); HEMOGLOBIN 12.3 GM/dL (10.7-15.3); LYMPH % 13.3 % (8-40); MCH 30.3 pg (25.7-33.7); MCHC 33.3 g/dl (32.0-36.0); MEAN CELL VOLUME 90.9 fl (80-96); NEUT % 80.6 % (42.8-82.8); PLATELET COUNT 330 K/MM3 (134-434); RBC 4.07 M/mm3 (3.60-5.2)
[2020-04-05 10:52] LABS: MEAN PLT VOLUME 6.7 fl (7.5-11.1); RDW 18.6 % (11.6-15.6)
[2020-04-05 11:13] LABS: ANISOCYTOSIS 0; MACROCYTOSIS 0; PLATELET ESTIMATE NORMAL
[2020-04-05 17:57] VITALS: BP 136/72; PULSE 83; TEMP 97.8
== END 2020-04-05 16:10 | disposition home or self-care (01) ==
LOC: JONCCHEMO 07:24
PROVIDERS: ATTEND Internal Medicine Hematology & Oncology
PROC: 3E04305 Introduction of Other Antineoplastic into Central Vein, Percutaneous Approach (ICD-10-PCS; principal; 2020-04-05)
PROC: 3E043GC Introduction of Other Therapeutic Substance into Central Vein, Percutaneous Approach (ICD-10-PCS; 2020-04-05)
DX: Z51.11 Encounter for antineoplastic chemotherapy (principal); D59.1 Other autoimmune hemolytic anemias
CPT/HCPCS: 36415; 80048; 80076; 83010; 83615; 83735; 84550; 85025; 85044; 96367; 96413; 96415; J9312

== ENCOUNTER 2020-04-12 07:43 | Day surgery (SDC) | payer OTHER, BC ==
[2020-04-12] MEDS ORDERED: DEXAMETHASONE SODIUM PHOSPHATE 8 MG, DIPHENHYDRAMINE 50 MG in SODIUM CHLORIDE 100 ML IVPB ONE (10:00)
[2020-04-12] MEDS ORDERED: ACETAMINOPHEN 325 MG TABLET (FP) PO ONE (10:00)
[2020-04-12] MEDS ORDERED: RITUXIMAB IVPB ONE (10:30)
[2020-04-12] MEDS ORDERED: SODIUM CHLORIDE IVPB ONE (10:30)
[2020-04-12 11:12] LABS: BASO % 0.5 % (0-2.0); EOS % 0.6 % (0-4.5); HEMATOCRIT 38.2 % (32.4-45.2); HEMOGLOBIN 12.8 GM/dL (10.7-15.3); LYMPH % 5.7 % (8-40); MCH 30.8 pg (25.7-33.7); MCHC 33.6 g/dl (32.0-36.0); MEAN CELL VOLUME 91.6 fl (80-96); MONO % 6.4 % (3.8-10.2); NEUT % 86.8 % (42.8-82.8); PLATELET COUNT 298 K/MM3 (134-434); RBC 4.17 M/mm3 (3.60-5.2); RDW 18.4 % (11.6-15.6); WHITE BLOOD COUNT 12.1 K/mm3 (4.0-10.0)
[2020-04-12 11:42] LABS: ALBUMIN 3.8 g/dl (3.4-5.0); BILIRUBIN,DIRECT 0.2 mg/dL (0.0-0.2); BILIRUBIN,TOTAL 0.5 mg/dL (0.2-1); BLOOD UREA NITROGEN 20.6 mg/dL (7-18); CALCIUM 9.4 mg/dL (8.5-10.1); MAGNESIUM 2.2 mg/dL (1.8-2.4); POTASSIUM 3.6 mmol/L (3.5-5.1); TOT PROT 6.4 g/dl (6.4-8.2); URIC ACID 4.8 mg/dL (2.6-7.2)
[2020-04-12 12:49] LABS: ANISOCYTOSIS 1+; MACROCYTOSIS 1+; PLATELET ESTIMATE NORMAL
[2020-04-13 08:28] VITALS: BP 133/72; PULSE 76; TEMP 97.6
== END 2020-04-12 16:35 | disposition home or self-care (01) ==
LOC: JONCCHEMO 07:43
PROVIDERS: ATTEND Internal Medicine Hematology & Oncology
PROC: 3E03305 Introduction of Other Antineoplastic into Peripheral Vein, Percutaneous Approach (ICD-10-PCS; principal; 2020-04-12)
PROC: 3E033GC Introduction of Other Therapeutic Substance into Peripheral Vein, Percutaneous Approach (ICD-10-PCS; 2020-04-12)
DX: Z51.11 Encounter for antineoplastic chemotherapy (principal); D59.1 Other autoimmune hemolytic anemias
CPT/HCPCS: 36415; 80048; 80076; 83010; 83615; 83735; 84550; 85025; 85045; 96367; 96413; 96415; J9312

== ENCOUNTER 2020-04-19 07:28 | Day surgery (SDC) | payer OTHER, BC ==
[2020-04-19] MEDS ORDERED: DEXAMETHASONE SODIUM PHOSPHATE 8 MG, DIPHENHYDRAMINE 50 MG in SODIUM CHLORIDE 100 ML IVPB ONE (10:00)
[2020-04-19] MEDS ORDERED: ACETAMINOPHEN 325 MG TABLET (FP) PO ONE (10:00)
[2020-04-19] MEDS ORDERED: RITUXIMAB IVPB ONE (10:30)
[2020-04-19] MEDS ORDERED: SODIUM CHLORIDE IVPB ONE (10:30)
[2020-04-19 11:34] LABS: BASO % 0.7 % (0-2.0); EOS % 1.3 % (0-4.5); HEMOGLOBIN 13.8 GM/dL (10.7-15.3); MCH 30.8 pg (25.7-33.7); MCHC 33.7 g/dl (32.0-36.0); MEAN CELL VOLUME 91.3 fl (80-96); MEAN PLT VOLUME 7.5 fl (7.5-11.1); MONO % 8.8 % (3.8-10.2); NEUT % 69.2 % (42.8-82.8); PLATELET COUNT 268 K/MM3 (134-434); RBC 4.49 M/mm3 (3.60-5.2); RDW 18.2 % (11.6-15.6); RETICULOCYTES 2.32 % (0.5-1.5); WHITE BLOOD COUNT 9.2 K/mm3 (4.0-10.0)
[2020-04-19 11:49] LABS: ALBUMIN 4.2 g/dl (3.4-5.0); BILIRUBIN,DIRECT 0.2 mg/dL (0.0-0.2); BILIRUBIN,TOTAL 0.6 mg/dL (0.2-1); BLOOD UREA NITROGEN 28.7 mg/dL (7-18); CALCIUM 9.5 mg/dL (8.5-10.1); CREATININE 1.3 mg/dL (0.55-1.3); MAGNESIUM 2.8 mg/dL (1.8-2.4); POTASSIUM 3.6 mmol/L (3.5-5.1); TOT PROT 7.1 g/dl (6.4-8.2)
[2020-04-19 14:51] VITALS: BP 141/61; PULSE 83; TEMP 97.6
== END 2020-04-19 14:30 | disposition home or self-care (01) ==
LOC: JONCCHEMO 07:28
PROVIDERS: ATTEND Internal Medicine Hematology & Oncology
PROC: 3E03305 Introduction of Other Antineoplastic into Peripheral Vein, Percutaneous Approach (ICD-10-PCS; principal; 2020-04-19)
PROC: 3E033GC Introduction of Other Therapeutic Substance into Peripheral Vein, Percutaneous Approach (ICD-10-PCS; 2020-04-19)
DX: Z51.11 Encounter for antineoplastic chemotherapy (principal); D59.1 Other autoimmune hemolytic anemias
CPT/HCPCS: 36415; 80048; 80076; 83010; 83615; 83735; 84550; 85025; 85045; 96367; 96413; 96415; J9312

== ENCOUNTER 2020-04-26 07:13 | Day surgery (SDC) | payer OTHER, BC ==
[2020-04-26 09:30] LABS: BASO % 0.8 % (0-2.0); EOS % 0.9 % (0-4.5); HEMATOCRIT 41.2 % (32.4-45.2); HEMOGLOBIN 13.8 GM/dL (10.7-15.3); MCH 30.2 pg (25.7-33.7); MCHC 33.4 g/dl (32.0-36.0); MEAN CELL VOLUME 90.5 fl (80-96); MONO % 9.2 % (3.8-10.2); NEUT % 67.1 % (42.8-82.8); PLATELET COUNT 269 K/MM3 (134-434); RBC 4.55 M/mm3 (3.60-5.2); RDW 17.8 % (11.6-15.6); RETICULOCYTES 2.44 % (0.5-1.5)
[2020-04-26] MEDS ORDERED: DEXAMETHASONE SODIUM PHOSPHATE 8 MG, DIPHENHYDRAMINE 50 MG in SODIUM CHLORIDE 100 ML IVPB ONE (10:00)
[2020-04-26] MEDS ORDERED: ACETAMINOPHEN 325 MG TABLET (FP) PO ONE (10:00)
[2020-04-26 10:02] LABS: ALBUMIN 4.2 g/dl (3.4-5.0); BILIRUBIN,DIRECT 0.2 mg/dL (0.0-0.2); BILIRUBIN,TOTAL 0.7 mg/dL (0.2-1); BLOOD UREA NITROGEN 26.5 mg/dL (7-18); CALCIUM 9.4 mg/dL (8.5-10.1); CREATININE 1.2 mg/dL (0.55-1.3); MAGNESIUM 2.2 mg/dL (1.8-2.4); POTASSIUM 4.1 mmol/L (3.5-5.1); TOT PROT 7.1 g/dl (6.4-8.2); URIC ACID 6.2 mg/dL (2.6-7.2)
[2020-04-26] MEDS ORDERED: SODIUM CHLORIDE IVPB ONE (10:30)
[2020-04-26] MEDS ORDERED: RITUXIMAB IVPB ONE (10:30)
[2020-04-26 15:44] LABS: ANISOCYTOSIS 1+; MACROCYTOSIS 0; PLATELET ESTIMATE NORMAL
[2020-04-26 17:34] VITALS: BP 137/73; PULSE 71; TEMP 98.4
== END 2020-04-26 12:30 | disposition home or self-care (01) ==
LOC: JONCCHEMO 07:13
PROVIDERS: ATTEND Internal Medicine Hematology & Oncology
DX: D59.1 Other autoimmune hemolytic anemias (principal)
CPT/HCPCS: 36415; 80048; 80076; 83010; 83615; 83735; 84550; 85025; 85045; 96367; 96413; J9312

== ENCOUNTER 2020-11-20 10:30 | Emergency (ER) | payer OTHER, BC ==
[2020-11-20 10:39] VITALS: BP 156/69; PULSE 81; TEMP 97.5; BMI 28.1
== END 2020-11-20 13:24 | disposition home or self-care (01) ==
LOC: JER 10:30 → JERFT 10:30
DX: M25.562 Pain in left knee (principal)
CPT/HCPCS: 73564-TC-LT-FY; 93971-TC; 99284-25

== ENCOUNTER 2023-12-10 09:10 | Emergency (ER) | payer OTHER, BC ==
[2023-12-10 09:50] VITALS: BP 137/77; PULSE 88; RESP 18; TEMP 97.8; BMI 28.3
[2023-12-10] MEDS ORDERED: KETOROLAC TROMETHAMINE 30 MG/1 ML VIAL ONE (14:49)
[2023-12-10] MEDS ORDERED: ACETAMINOPHEN 500 MG TABLET (FP) ONE (14:49)
== END 2023-12-10 12:54 | disposition home or self-care (01) ==
LOC: JER 09:10
DX: S83.91XA Sprain of unspecified site of right knee, initial encounter (principal); X58.XXXA Exposure to other specified factors, initial encounter
CPT/HCPCS: 73562-TC-RT-FY; 93971-TC; 99284-25